=== PATIENT | male | born 1970 | race Two or more races ===

== ENCOUNTER → 2020-06-07 11:45 | Outpatient (BNVA) | payer MEDICARE, MEDICAID, SELFPAY | PROVIDERS: Visit Provider Internal Medicine | DX: F11.20 Opioid dependence, uncomplicated (principal) | CPT/HCPCS: 80305; 99212 ==

== ENCOUNTER → 2020-07-08 11:25 | Outpatient (BNVA) | payer MEDICARE, MEDICAID, SELFPAY | PROVIDERS: Visit Provider Internal Medicine | DX: F11.20 Opioid dependence, uncomplicated (principal) | CPT/HCPCS: 80305; 99211 ==

== ENCOUNTER → 2020-08-05 10:48 | Outpatient (BNVA) | payer MEDICARE, MEDICAID, SELFPAY | PROVIDERS: Visit Provider Internal Medicine | DX: Z13.89 Encounter for screening for other disorder (principal) | CPT/HCPCS: Q3014 ==

== ENCOUNTER → 2020-09-03 10:09 | Outpatient (BNVA) | payer MEDICARE, MEDICAID, SELFPAY | PROVIDERS: Visit Provider Internal Medicine | DX: F11.99 Opioid use, unspecified with unspecified opioid-induced disorder (principal) | CPT/HCPCS: Q3014 ==

== ENCOUNTER → 2020-10-01 10:04 | Outpatient (BNVA) | payer MEDICARE, MEDICAID, SELFPAY | PROVIDERS: PCP Physician Assistant Medical; Visit Provider Internal Medicine | DX: Z13.89 Encounter for screening for other disorder (principal) | CPT/HCPCS: Q3014 ==

== ENCOUNTER → 2020-10-29 10:02 | Outpatient (BNVA) | payer MEDICARE, MEDICAID, SELFPAY | PROVIDERS: PCP Physician Assistant Medical; Visit Provider Internal Medicine | DX: Z13.89 Encounter for screening for other disorder (principal) | CPT/HCPCS: Q3014 ==

== ENCOUNTER → 2020-11-29 10:44 | Outpatient (BNVA) | payer MEDICARE, MEDICAID, SELFPAY | PROVIDERS: PCP Physician Assistant Medical; Visit Provider Internal Medicine | DX: F11.20 Opioid dependence, uncomplicated (principal) | CPT/HCPCS: 80305; 99212 ==

== ENCOUNTER → 2020-12-27 10:41 | Outpatient (BNVA) | payer MEDICARE, MEDICAID, SELFPAY | PROVIDERS: PCP Physician Assistant Medical; Visit Provider Internal Medicine | DX: F11.20 Opioid dependence, uncomplicated (principal) | CPT/HCPCS: 80305; 99212 ==

== ENCOUNTER → 2021-01-24 10:15 | Outpatient (BNVA) | payer MEDICARE, MEDICAID, SELFPAY | PROVIDERS: PCP Physician Assistant Medical; Visit Provider Internal Medicine | DX: F11.20 Opioid dependence, uncomplicated (principal) | CPT/HCPCS: 80305; 99212 ==

== ENCOUNTER → 2021-02-21 10:26 | Outpatient (BNVA) | payer MEDICARE, MEDICAID, SELFPAY | PROVIDERS: PCP Physician Assistant Medical; Visit Provider Internal Medicine | DX: F11.20 Opioid dependence, uncomplicated (principal) | CPT/HCPCS: 80305; 99212 ==

== ENCOUNTER → 2021-03-14 10:59 | Outpatient (BNVA) | payer MEDICARE, MEDICAID, SELFPAY | PROVIDERS: Visit Provider Internal Medicine | DX: Z51.81 Encounter for therapeutic drug level monitoring (principal) | CPT/HCPCS: 80305; 99211 ==

== ENCOUNTER → 2021-04-18 10:17 | Outpatient (BNVA) | payer MEDICARE, MEDICAID, SELFPAY | PROVIDERS: Visit Provider Internal Medicine | DX: F11.20 Opioid dependence, uncomplicated (principal) | CPT/HCPCS: 80305; 99212 ==

== ENCOUNTER → 2021-06-13 10:33 | Outpatient (BNVA) | payer MEDICARE, MEDICAID, SELFPAY | PROVIDERS: Visit Provider Internal Medicine | DX: F11.20 Opioid dependence, uncomplicated (principal); Z51.81 Encounter for therapeutic drug level monitoring | CPT/HCPCS: 80305; 99212 ==

== ENCOUNTER → 2021-08-13 11:23 | Outpatient (BNVA) | payer MEDICARE, MEDICAID, SELFPAY | PROVIDERS: Visit Provider Internal Medicine | DX: F11.20 Opioid dependence, uncomplicated (principal); Z51.81 Encounter for therapeutic drug level monitoring; Z79.899 Other long term (current) drug therapy | CPT/HCPCS: 80305; 99212 ==

== ENCOUNTER → 2021-10-08 10:22 | Outpatient (BNVA) | payer MEDICARE, MEDICAID, SELFPAY | PROVIDERS: Visit Provider Internal Medicine | DX: Z51.81 Encounter for therapeutic drug level monitoring (principal); F11.20 Opioid dependence, uncomplicated | CPT/HCPCS: 99212 ==

== ENCOUNTER → 2021-12-03 10:27 | Outpatient (BNVA) | payer MEDICARE, MEDICAID, SELFPAY | PROVIDERS: Visit Provider Internal Medicine | DX: Z51.81 Encounter for therapeutic drug level monitoring (principal); F11.20 Opioid dependence, uncomplicated | CPT/HCPCS: 80305; 99212 ==

== ENCOUNTER → 2022-01-30 10:53 | Outpatient (BNVA) | payer MEDICARE, MEDICAID, SELFPAY | PROVIDERS: Visit Provider Internal Medicine | DX: Z51.81 Encounter for therapeutic drug level monitoring (principal); F11.20 Opioid dependence, uncomplicated | CPT/HCPCS: 80305; 99212 ==

== ENCOUNTER → 2022-03-27 10:47 | Outpatient (BNVA) | payer MEDICARE, MEDICAID, SELFPAY | PROVIDERS: PCP Internal Medicine Medical Oncology; Visit Provider Internal Medicine | DX: F11.20 Opioid dependence, uncomplicated (principal); Z51.81 Encounter for therapeutic drug level monitoring; Z79.899 Other long term (current) drug therapy | CPT/HCPCS: 99212 ==

== ENCOUNTER → 2022-06-02 11:22 | Outpatient (BNVA) | payer MEDICARE, MEDICAID, SELFPAY | PROVIDERS: PCP Internal Medicine Medical Oncology; Visit Provider Internal Medicine | DX: Z51.81 Encounter for therapeutic drug level monitoring (principal); F11.29 Opioid dependence with unspecified opioid-induced disorder | CPT/HCPCS: 99212 ==

== ENCOUNTER → 2022-08-03 13:42 | Outpatient (BNVA) | payer MEDICARE, MEDICAID, SELFPAY | PROVIDERS: PCP Internal Medicine Medical Oncology; Visit Provider Internal Medicine | DX: F11.20 Opioid dependence, uncomplicated (principal) | CPT/HCPCS: 99212 ==

== ENCOUNTER → 2022-09-28 13:25 | Outpatient (BNVA) | payer MEDICARE, MEDICAID, SELFPAY | PROVIDERS: PCP Internal Medicine Medical Oncology; Visit Provider Nurse Practitioner Psychiatric/Mental Health | DX: F11.20 Opioid dependence, uncomplicated (principal) | CPT/HCPCS: 80305; 99212 ==

== ENCOUNTER → 2022-11-23 11:08 | Outpatient (BNVA) | payer MEDICARE, MEDICAID, SELFPAY | PROVIDERS: PCP Internal Medicine Medical Oncology; Visit Provider Nurse Practitioner Psychiatric/Mental Health | DX: F11.91 Opioid use, unspecified, in remission (principal); Z51.81 Encounter for therapeutic drug level monitoring; Z79.899 Other long term (current) drug therapy | CPT/HCPCS: 80305; 99212 ==

== ENCOUNTER 2023-01-19 10:34 | Outpatient (REF) | payer MEDICARE, MEDICAID, SELFPAY ==
[2023-01-19 12:33] LABS: Alanine Aminotransferase 42 U/L (0-40); Albumin Level 4.4 g/dL (3.5-5.0); Alkaline Phosphatase 57 U/L (39-117); Aspartate Amino Transferase 30 U/L (5-37); Bilirubin Direct 0.1 mg/dL (0.0-0.5); Bilirubin Total 0.5 mg/dL (0.0-1.0); Total Protein 8.2 g/dL (6.5-8.0)
== END 2023-01-19 10:35 | disposition home or self-care (01) ==
LOC: CF 10:34
PROVIDERS: Nurse Practitioner Psychiatric/Mental Health; PCP Internal Medicine Medical Oncology; Visit Provider Nurse Practitioner Psychiatric/Mental Health
DX: F11.20 Opioid dependence, uncomplicated (principal); Z51.81 Encounter for therapeutic drug level monitoring; Z79.899 Other long term (current) drug therapy
CPT/HCPCS: 36415; 80076; 80305; 99212

== ENCOUNTER 2023-03-17 16:04 | Outpatient (AMB) | payer MEDICARE, MEDICAID, SELFPAY ==
[2023-03-17 16:22] VITALS: BP 136/85; PULSE 90; O2SAT 98
--- NOTE | 2023-03-17 16:22 | MHC.OFFVIS ---
Intake Vital Signs 03/17/23 16:22 BP 136/85 Blood Pressure Location Lt brachial Position Sitting Pulse 90 Pulse Oximetry (%) 98 Intake Visit Reasons: mat visit Allergies acetaminophen [Tylenol] Allergy (Unknown, Verified 01/19/23 10:37) hives HPI mat visit HPI Details Patient presents for follow up Currently prescribed SUboxone 8mg BID Would like to trial taper Discussed methods for doing so, including decreasing by 2mg every 3 weeks--and holding when/if withdrawal sx present. Reinforced importance of not decreasing dose too fast. Patient verbalized understanding [facility] Medical History Opioid use disorder Review of Systems Const Reports as per HPI and Reports no additional complaints Physical Exam Vital Signs: Last Vital Signs Pulse 90 03/17/23 16:22 BP 136/85 03/17/23 16:22 Pulse Ox 98 03/17/23 16:22 Const General: cooperative, healthy appearing, comfortable, no acute distress, well developed and alert Nutritional Appearance: well nourished Orientation/consciousness: patient oriented x3 Limitations: no limitations Neuro General: patient oriented x3 Psych Appearance: well kempt Mental Status: mental status grossly normal Speech and movement: Normal speech and movement present Affect: normal affect Attitude: cooperative Thought process: Normal thought process present Thought content: Normal thought content present Insight: Good insight present (Psych) Judgement: Good judgement present (Psych) Assessment & Plan Assessment & Plan (1) Opioid use disorder in remission: Code(s): F11.91 - Opioid use, unspecified, in remission Plan: continue suboxone at current dose --with plan to trial taper before next appt follow up 8 weeks Medications: Refilled Suboxone 8-2 mg (buprenorphine-naloxone) 2 film sublingual DAILY 30 days 60 ea 1RF NS Coding Level of Care Code Est Pt Level 3 (96765) Diagnoses Opioid use disorder in remission F11.91
== END 2023-03-17 16:44 | disposition home or self-care (01) ==
LOC: HO.HCC 16:04
PROVIDERS: PCP Internal Medicine Medical Oncology; Visit Provider Nurse Practitioner Psychiatric/Mental Health
DX: F11.91 Opioid use, unspecified, in remission (principal)
CPT/HCPCS: 99213

== ENCOUNTER → 2023-03-17 16:04 | Outpatient (BNVA) | payer MEDICARE, MEDICAID, SELFPAY | PROVIDERS: PCP Internal Medicine Medical Oncology; Visit Provider Nurse Practitioner Psychiatric/Mental Health | DX: Z51.81 Encounter for therapeutic drug level monitoring (principal); F11.20 Opioid dependence, uncomplicated | CPT/HCPCS: 99212 ==

== ENCOUNTER 2023-05-10 11:01 | Outpatient (AMB) | payer MEDICARE, MEDICAID, SELFPAY ==
--- NOTE | 2023-05-10 11:01 | A.OFFVIS_ITS ---
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 Following last visit patient began to taper his dose. Initially decreased by quarter of an 8 mg film (2 mg). State at this dose for several weeks then decreased in additional two mg. He is currently at 8 mg in the morning and 4 mg in the late afternoon. Continues to have some feelings of anxiety and occasionally feeling like he needs another dose of Suboxone. Discussed strategies to address this anxiety including holding at current dose for several weeks to a month before decreasing any further. [facility] Medical History Opioid use disorder Review of Systems Const Reports as per HPI and Reports no additional complaints Physical Exam Vital Signs: Last Vital Signs Pulse 80 05/10/23 11:12 BP 128/84 05/10/23 11:12 Pulse Ox 98 05/10/23 11:12 Oxygen Delivery Method Room Air 05/10/23 11:12 Const General: cooperative, healthy appearing, comfortable, no acute distress, well developed and alert Nutritional Appearance: well nourished Orientation/consciousness: patient oriented x3 Limitations: no limitations Neuro General: patient oriented x3 Psych Appearance: well kempt Mental Status: mental status grossly normal Speech and movement: Normal speech and movement present Affect: normal affect Attitude: cooperative Thought process: Normal thought process present Thought content: Normal thought content present Insight: Good insight present (Psych) Judgement: Good judgement present (Psych) Assessment & Plan Assessment & Plan (1) Opioid use disorder in remission: Code(s): F11.91 - Opioid use, unspecified, in remission Plan: * continue suboxone at current dose 12 mg--with plan to trial taper before next appt * follow up 8 weeks * Hydroxyzine TID prn Medications: New buprenorphine-naloxone 8-2 mg (Suboxone) 1 film buccal DAILY 30 ea 1RF buprenorphine-naloxone 4-1 mg (Suboxone) 1 film buccal DAILY 30 ea 1RF Changed From hydroxyzine pamoate (Vistaril) 25 mg PO BEDTIME 30 days 30 caps 5RF To hydroxyzine pamoate (Vistaril) 25 mg PO TID PRN 30 caps 0RF anxiety Discontinued Suboxone 8-2 mg (buprenorphine-naloxone) Discontinued Reason: Doctor's Order 2 film sublingual DAILY 30 days 60 ea 1RF NS Coding Level of Care Code Est Pt Level 4 (90969) Diagnoses Opioid use disorder in remission F11.91
[2023-05-10 11:12] VITALS: BP 128/84; PULSE 80; O2SAT 98
== END 2023-05-10 11:31 | disposition home or self-care (01) ==
LOC: HO.HCC 11:01
PROVIDERS: PCP Internal Medicine Medical Oncology; Visit Provider Nurse Practitioner Psychiatric/Mental Health
DX: F11.91 Opioid use, unspecified, in remission (principal)
CPT/HCPCS: 99214

== ENCOUNTER → 2023-05-10 11:01 | Outpatient (BNVA) | payer MEDICARE, MEDICAID, SELFPAY | PROVIDERS: PCP Internal Medicine Medical Oncology; Visit Provider Nurse Practitioner Psychiatric/Mental Health | DX: F11.91 Opioid use, unspecified, in remission (principal) | CPT/HCPCS: 99212 ==

== ENCOUNTER 2023-07-05 12:58 | Outpatient (AMB) | payer MEDICARE, MEDICAID, SELFPAY ==
--- NOTE | 2023-07-05 12:59 | A.OFFVIS_ITS ---
Intake Vital Signs 07/05/23 13:05 BP 128/76 Blood Pressure Location Lt radial Position Sitting Pulse 93 Pulse Source Pulse Oximeter Pulse Oximetry (%) 98 Oxygen Delivery Method Room Air Intake Visit Reasons: mat visit Intake Note: the patient presents for a mat visit Director Clinical Applications Required: No Allergies acetaminophen [Tylenol] Allergy (Unknown, Verified 07/05/23 13:05) hives Medication List - Last Reconciled 07/05/23 by Libby Herrera CNP lorazepam 1 mg PO BEDTIME PRN 5 days Suboxone 4-1 mg (buprenorphine-naloxone) 1 film buccal DAILY NS Suboxone 8-2 mg (buprenorphine-naloxone) 1 film buccal DAILY NS Do you need a note to return to daycare/school/sports/work: No HPI mat visit HPI Details Patient presents for OUD treatment follow up Taking 8mg in AM and 1/2 of a 4mg film=10mg total Reporting occasional hot flashes at night, denies sweating Encouraged to stay at current dose for another few weeks to ensure sx do not worsen. Patient agreeable [facility] Medical History Opioid use disorder Review of Systems Const Reports as per HPI and Reports no additional complaints Physical Exam Vital Signs: Last Vital Signs Pulse 93 07/05/23 13:05 BP 128/76 07/05/23 13:05 Pulse Ox 98 07/05/23 13:05 Oxygen Delivery Method Room Air 07/05/23 13:05 Const General: cooperative, healthy appearing, comfortable, no acute distress, well developed and alert Nutritional Appearance: well nourished Orientation/consciousness: patient oriented x3 Limitations: no limitations Neuro General: patient oriented x3 Psych Appearance: well kempt Mental Status: mental status grossly normal Speech and movement: Normal speech and movement present Affect: normal affect Attitude: cooperative Thought process: Normal thought process present Thought content: Normal thought content present Insight: Good insight present (Psych) Judgement: Good judgement present (Psych) Assessment & Plan Assessment & Plan (1) Opioid use disorder in remission: Code(s): F1. - Opioid use, unspecified, in remission Plan: * continue at current dose * refill not due for another month * follow up in August Coding Level of Care Code Est Pt Level 3 (75543) Diagnoses Opioid use disorder in remission
[2023-07-05 13:05] VITALS: BP 128/76; PULSE 93; O2SAT 98
== END 2023-07-05 13:39 | disposition home or self-care (01) ==
PROVIDERS: PCP Internal Medicine Medical Oncology; Visit Provider Nurse Practitioner Family
DX: F11.91 Opioid use, unspecified, in remission (principal)
CPT/HCPCS: 99213

== ENCOUNTER → 2023-07-05 12:58 | Outpatient (BNVA) | payer MEDICARE, MEDICAID, SELFPAY | PROVIDERS: PCP Internal Medicine Medical Oncology; Visit Provider Nurse Practitioner Family | DX: F11.91 Opioid use, unspecified, in remission (principal) | CPT/HCPCS: 99212 ==

== ENCOUNTER 2023-09-06 11:00 | Outpatient (AMB) | payer MEDICARE, MEDICAID, SELFPAY ==
--- NOTE | 2023-09-06 11:34 | MHC.AM.SUB ---
Intake Intake Visit Reasons: MAT VISIT Allergies acetaminophen [Tylenol] Allergy (Unknown, Verified 07/05/23 13:05) hives HPI MAT VISIT HPI Details Pt presents via telehealth for LIUDMILA Reports he has been doing well, says his hot flashes he was experiencing in the night have subsided. He has been taking 8mg suboone in the morning and 2mg in the evening, he wishes to start tapering down at this time. He feels as though he was unsuccessful with his last attempt at tapering because it was too much too soon Discussed with patient decreasing his evening dose by 1/2-1mg PFSH Medical History Opioid use disorder Review of Systems Const Reports as per HPI Assessment & Plan Assessment & Plan (1) Opioid use disorder in remission: Code(s): F11.91 - Opioid use, unspecified, in remission Plan: -Refill sent for 8mg films and 2mg films. Pt is to begin decreasing his evening dose from 2mg to 1-1.5mg adjusted based on withdrawal symptoms -He is to follow up via telehealth in 1 month to check in on how the medication decrease is going -Taper planning will be ongoing Medications: New Suboxone 2-0.5 mg (buprenorphine-naloxone) place 1 strip/tab under (each) side of tongue 1 film buccal DAILY 30 ea 0RF NS Refilled Suboxone 8-2 mg (buprenorphine-naloxone) 1 film buccal DAILY 30 ea 0RF NS Discontinued Suboxone 4-1 mg (buprenorphine-naloxone) Discontinued Reason: Patient Completed Course 1 film buccal DAILY 30 ea 0RF NS Telehealth Telehealth Location of provider rendering services: practice address Location of patient: address on file Patient Identification confirmed using: Name, : Yes Telehealth method: voice only Patient verbally consented to treatment: Yes Patient verbally consented to billing insurance company: Yes Patient informed of any privacy concerns related to visit: Yes Coding Level of Care Code Tele Est Pt Level 3 (54205) Diagnoses Opioid use disorder in remission F11.91
== END 2023-09-06 11:25 | disposition home or self-care (01) ==
PROVIDERS: PCP Internal Medicine Medical Oncology; Visit Provider Nurse Practitioner Family
DX: F11.91 Opioid use, unspecified, in remission (principal)
CPT/HCPCS: 99442

== ENCOUNTER → 2023-09-06 11:00 | Outpatient (BNVA) | payer MEDICARE, MEDICAID, SELFPAY | PROVIDERS: PCP Internal Medicine Medical Oncology; Visit Provider Nurse Practitioner Family ==

== ENCOUNTER 2023-10-04 10:39 | Outpatient (AMB) | payer MEDICARE, MEDICAID, SELFPAY ==
--- NOTE | 2023-10-04 13:14 | MHC.AM.SUB ---
Intake Intake Visit Reasons: MAT VISIT Allergies acetaminophen [Tylenol] Allergy (Unknown, Verified 07/05/23 13:05) hives HPI MAT VISIT HPI Details Patient presents via telehelath for MAt visit He reports the last month has gone well for him He is tolerating his suboxone dose well (10mg day) No concern for side effects No concerns for recovery at this time [facility] Medical History Opioid use disorder Review of Systems Const Reports as per HPI Assessment & Plan Assessment & Plan (1) Opioid use disorder: Comment: He is doing well He has been stable for some time. Code(s): F11.99 - Opioid use, unspecified with unspecified opioid-induced disorder Plan: -Mass pat reviewed -Suboxone refilled at current dose -Educated him to call office if he has any concerns -Follow up 2 months Medications: Refilled Suboxone 2-0.5 mg (buprenorphine-naloxone) place 1 strip/tab under (each) side of tongue 1 film buccal DAILY 30 ea 0RF NS Suboxone 8-2 mg (buprenorphine-naloxone) 1 film buccal DAILY 30 ea 0RF NS Telehealth Telehealth Location of provider rendering services: practice address Location of patient: address on file Patient Identification confirmed using: Name, : Yes Telehealth method: voice only Patient verbally consented to treatment: Yes Patient verbally consented to billing insurance company: Yes Patient informed of any privacy concerns related to visit: Yes Minutes spent on Phone/Video with Pt.: 20 Coding Level of Care Code Tele Est Pt Level 3 (28762) Diagnoses Opioid use disorder F11.99
== END 2023-10-04 10:58 | disposition home or self-care (01) ==
PROVIDERS: PCP Internal Medicine Medical Oncology; Visit Provider Nurse Practitioner Family
DX: F11.20 Opioid dependence, uncomplicated (principal)
CPT/HCPCS: 99442

== ENCOUNTER → 2023-10-04 10:39 | Outpatient (BNVA) | payer MEDICARE, MEDICAID, SELFPAY | PROVIDERS: PCP Internal Medicine Medical Oncology; Visit Provider Nurse Practitioner Family ==

== ENCOUNTER 2023-11-29 10:25 | Outpatient (AMB) | payer MEDICARE, MEDICAID, SELFPAY ==
--- NOTE | 2023-11-29 10:31 | A.OFFVISCC_ITS ---
Intake Vital Signs 11/29/23 10:35 BP 120/70 Blood Pressure Location Rt brachial Position Sitting Respiration 20 Pulse 98 Pulse Source Pulse Oximeter Pulse Oximetry (%) 99 Intake Visit Reasons: MAT VISIT Allergies acetaminophen [Tylenol] Allergy (Unknown, Verified 07/05/23 13:05) hives HPI MAT VISIT HPI Details Patient presents for MAT appointment Has no concerns for recovery at this time Denies cravings Tolerating suboxone dose well, has tapered form 10mg/day to 9mg/day HPI Comments History of Present Illness Details Patient presents for MAT visit [facility] Medical History Opioid use disorder Review of Systems Const Reports as per HPI Physical Exam Vital Signs: Last Vital Signs Pulse 98 11/29/23 10:35 Resp 20 11/29/23 10:35 BP 120/70 11/29/23 10:35 Pulse Ox 99 11/29/23 10:35 Const General: cooperative and no acute distress Resp Effort & Inspection: normal respiratory effort and able to speak in complete sentences Psych Appearance: grossly normal Mental Status: mental status grossly normal Speech and movement: Normal speech and movement present Affect: normal affect Attitude: cooperative Thought process: Normal thought process present Assessment & Plan Assessment & Plan (1) Opioid use disorder: Comment: He is doing well He has been stable for some time. Code(s): F11.99 - Opioid use, unspecified with unspecified opioid-induced disorder Plan: -Mass pat reviewed -Suboxone refilled -Follow up 8 weeks Medications: Refilled Suboxone 8-2 mg (buprenorphine-naloxone) 1 film buccal DAILY 30 ea 0RF NS Suboxone 2-0.5 mg (buprenorphine-naloxone) place 1 strip/tab under (each) side of tongue 1 film buccal DAILY 30 ea 0RF NS Coding Level of Care Code Est Pt Level 3 (06301) Diagnoses Opioid use disorder F11.99
[2023-11-29 10:35] VITALS: BP 120/70; PULSE 98; RESP 20; O2SAT 99
== END 2023-11-29 11:20 | disposition home or self-care (01) ==
PROVIDERS: PCP Internal Medicine Medical Oncology; Visit Provider Nurse Practitioner Family
DX: F11.99 Opioid use, unspecified with unspecified opioid-induced disorder (principal)
CPT/HCPCS: 99213

== ENCOUNTER → 2023-11-29 10:25 | Outpatient (BNVA) | payer MEDICARE, MEDICAID, SELFPAY | PROVIDERS: PCP Internal Medicine Medical Oncology; Visit Provider Nurse Practitioner Family | DX: F11.20 Opioid dependence, uncomplicated (principal) | CPT/HCPCS: 99212 ==

== ENCOUNTER 2024-01-04 10:52 | Outpatient (AMB) | payer MEDICARE, MEDICAID, SELFPAY ==
--- NOTE | 2024-01-04 10:51 | A.OFFVISCC_ITS ---
Vital Signs 01/04/24 10:55 BP 132/78 Blood Pressure Location Lt brachial Position Sitting Pulse 90 Pulse Source Pulse Oximeter Pulse Oximetry (%) 99 Oxygen Delivery Method Room Air Intake Visit Reasons: MAT Allergies acetaminophen [Tylenol] Allergy (Unknown, Verified 07/05/23 13:05) hives HPI HPI MAT: Details: Patient presents for follow up Has been tapering dose --may have gone too quickly was at 8mg + 1mg, but then reduced by another half mg. Wants to go back to 10mg daily 8mg +2mg is what he wants to return to. does not need a refill right for the 2mg films 8mg rx sent in yesterday will call when refill for 2mg is due Encouraged to pause on taper for now given challenges with most recent dose reduction patient agreeable [facility] Medical History (Updated 01/04/24 @ 15:15 by Libby Herrera CNP) Opioid use disorder Review of Systems Const Reports as per HPI Physical Exam Vital Signs: Last Vital Signs Pulse 90 01/04/24 10:55 BP 132/78 01/04/24 10:55 Pulse Ox 99 01/04/24 10:55 Oxygen Delivery Method Room Air 01/04/24 10:55 Const General: cooperative and comfortable Nutritional Appearance: average body habitus Orientation/consciousness: patient oriented x3 Limitations: no limitations Neuro General: patient oriented x3 Psych Appearance: well kempt Speech and movement: Clear speech present Affect: Anxious affect present Attitude: cooperative Thought process: Normal thought process present Thought content: Normal thought content present Insight: Fair insight present (Psych) Judgement: Good judgement present (Psych) Assessment & Plan Assessment & Plan (1) Opioid use disorder in remission: Code(s): F11.91 - Opioid use, unspecified, in remission Category: Medical Plan: * no rx needed at this time--will call when he needs 2mg films refilled * 4mg script cancelled * follow up 4 weeks Medications: Discontinued Suboxone 4-1 mg (buprenorphine-naloxone) place 1 strip/tab under (each) side of tongue Discontinued Reason: Doctor's Order 1 film buccal DAILY 16 ea 0RF NS
[2024-01-04 10:55] VITALS: BP 132/78; PULSE 90; O2SAT 99
== END 2024-01-04 11:47 | disposition home or self-care (01) ==
PROVIDERS: PCP Internal Medicine Medical Oncology; Visit Provider Nurse Practitioner Psychiatric/Mental Health
DX: F11.91 Opioid use, unspecified, in remission (principal)
CPT/HCPCS: 99213

== ENCOUNTER → 2024-01-04 10:52 | Outpatient (BNVA) | payer MEDICARE, MEDICAID, SELFPAY | PROVIDERS: PCP Internal Medicine Medical Oncology; Visit Provider Nurse Practitioner Psychiatric/Mental Health | DX: F11.20 Opioid dependence, uncomplicated (principal) | CPT/HCPCS: 99212 ==

== ENCOUNTER 2024-02-01 10:17 | Outpatient (AMB) | payer MEDICARE, MEDICAID, SELFPAY ==
--- NOTE | 2024-02-01 10:27 | MHC.AM.SUB ---
Vital Signs 02/01/24 10:34 BP 140/94 H Blood Pressure Location Rt brachial Position Sitting Respiration 16 Pulse 87 Pulse Source Pulse Oximeter Pulse Oximetry (%) 98 Oxygen Delivery Method Room Air Intake Visit Reasons: MAT Allergies acetaminophen [Tylenol] Allergy (Unknown, Verified 07/05/23 13:05) hives HPI HPI MAT: Details: Patient presents for MAT appt States he has been taking 8mg and 1/2 of his 4mg films for a daily total dose of 10mg COntinues to experience intermittent panic attacks, has a therapist and psychiatrist monitoring Has been facing some challenges parenting his 7yo daughter, 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 Has no concerns for recovery today HPI Comments Details: Patient presents for MAT visit [facility] Medical History (Updated 01/04/24 @ 15:15 by Libby Herrera CNP) Opioid use disorder Review of Systems Const Reports as per HPI Physical Exam Vital Signs: Last Vital Signs Pulse 87 02/01/24 10:34 Resp 16 02/01/24 10:34 BP 140/94 H 02/01/24 10:34 Pulse Ox 98 02/01/24 10:34 Oxygen Delivery Method Room Air 02/01/24 10:34 Const General: cooperative and no acute distress Resp Effort & Inspection: normal respiratory effort and able to speak in complete sentences Psych Appearance: grossly normal Mental Status: mental status grossly normal Speech and movement: Normal speech and movement present Affect: normal affect Attitude: cooperative Thought process: Normal thought process present Assessment & Plan Assessment & Plan (1) Opioid use disorder in remission: Code(s): F11.91 - Opioid use, unspecified, in remission Category: Medical Plan: -Mass pat reviewed -8mg suboxone films refill sent to pharmacy -4mg films were last filled on 01/10, he has been splitting in half, no refill due for these until 03/12 -Follow up 2 months Medications: Refilled Suboxone 8-2 mg (buprenorphine-naloxone) 1 film buccal DAILY 30 ea 1RF NS
[2024-02-01 10:34] VITALS: BP 140/94; PULSE 87; RESP 16; O2SAT 98
== END 2024-02-01 10:57 | disposition home or self-care (01) ==
PROVIDERS: PCP Internal Medicine Medical Oncology; Visit Provider Nurse Practitioner Family
DX: F11.91 Opioid use, unspecified, in remission (principal)
CPT/HCPCS: 99213

== ENCOUNTER → 2024-02-01 10:17 | Outpatient (BNVA) | payer MEDICARE, MEDICAID, SELFPAY | PROVIDERS: PCP Internal Medicine Medical Oncology; Visit Provider Nurse Practitioner Family | DX: F11.21 Opioid dependence, in remission (principal) | CPT/HCPCS: 99212 ==

== ENCOUNTER 2024-03-27 14:02 | Outpatient (AMB) | payer MEDICARE, MEDICAID, SELFPAY ==
--- NOTE | 2024-03-27 14:03 | MHC.AM.SUB ---
Vital Signs 03/27/24 14:07 BP 140/80 H Blood Pressure Location Lt brachial Position Sitting Pulse Source Pulse Oximeter Pulse Oximetry (%) 98 Intake Visit Reasons: MAT Allergies acetaminophen [Tylenol] Allergy (Unknown, Verified 07/05/23 13:05) hives HPI HPI MAT: Details: Patient presents for follow up Currently prescribed Suboxone 12mg daily will continue this dose tolerating brand name buprenorphine generic films cause GI distress wants to taper dose again --encouraged to go slowly as he has been attempting to decrease dose for some time and unfortumately results in issues with prescriptions discussed injection again, patient declines this option [facility] Medical History (Updated 01/04/24 @ 15:15 by Libby Herrera CNP) Opioid use disorder Review of Systems Const Reports as per HPI and Reports no additional complaints Physical Exam Vital Signs: Last Vital Signs BP 140/80 H 03/27/24 14:07 Pulse Ox 98 03/27/24 14:07 Const General: cooperative and no acute distress Psych Appearance: grossly normal Mental Status: mental status grossly normal Speech and movement: Normal speech and movement present Affect: normal affect Attitude: cooperative Thought process: Normal thought process present Assessment & Plan Assessment & Plan (1) Opioid use disorder in remission: Code(s): F11.91 - Opioid use, unspecified, in remission Category: Medical Plan: -continue suboxone at current dose -follow up 8 weeks
[2024-03-27 14:07] VITALS: BP 140/80; O2SAT 98
== END 2024-03-27 14:30 | disposition home or self-care (01) ==
PROVIDERS: PCP Internal Medicine Medical Oncology; Visit Provider Nurse Practitioner Psychiatric/Mental Health
DX: F11.91 Opioid use, unspecified, in remission (principal)
CPT/HCPCS: 99213

== ENCOUNTER → 2024-03-27 14:02 | Outpatient (BNVA) | payer MEDICARE, MEDICAID, SELFPAY | PROVIDERS: PCP Internal Medicine Medical Oncology; Visit Provider Nurse Practitioner Psychiatric/Mental Health | DX: F11.20 Opioid dependence, uncomplicated (principal); Z51.81 Encounter for therapeutic drug level monitoring | CPT/HCPCS: 99212 ==

== ENCOUNTER 2024-04-21 10:30 | Outpatient (AMB) | payer MEDICARE, MEDICAID, SELFPAY ==
--- NOTE | 2024-04-21 10:39 | MHC.AM.SUB ---
Intake Visit Reasons: MAT Office Allergies acetaminophen [Tylenol] Allergy (Unknown, Verified 07/05/23 13:05) hives HPI HPI MAT Office: Details: Patient presents for follow up Reports he has decreased to 10mg for the past 2 days Insistent that he have dose decrease as he does not wish to have 12mg films any longer Discussed risk and concern with decreasing dose based on history of decreasing too quickly Patient acknowledged this and feels strongly that he can move forward [facility] Medical History (Updated 01/04/24 @ 15:15 by Libby Herrera CNP) Opioid use disorder Review of Systems Const Reports as per HPI and Reports no additional complaints Physical Exam Const General: cooperative and no acute distress Psych Appearance: grossly normal Mental Status: mental status grossly normal Speech and movement: Normal speech and movement present Affect: normal affect Attitude: cooperative Thought process: Normal thought process present Assessment & Plan Assessment & Plan (1) Opioid use disorder in remission: Code(s): F11.91 - Opioid use, unspecified, in remission Category: Medical Plan: -decrease dose to 10mg daily -follow up 4 weeks Medications: New Suboxone 2-0.5 mg (buprenorphine-naloxone) 1 film buccal DAILY 30 ea 0RF NS Suboxone 8-2 mg (buprenorphine-naloxone) 1 film buccal DAILY 30 ea 0RF NS Discontinued Suboxone 12-3 mg (buprenorphine-naloxone) Discontinued Reason: Doctor's Order 1 film buccal Q24H 30 ea 0RF NS
== END 2024-04-21 10:57 | disposition home or self-care (01) ==
PROVIDERS: PCP Internal Medicine Medical Oncology; Visit Provider Nurse Practitioner Psychiatric/Mental Health
DX: F11.91 Opioid use, unspecified, in remission (principal)
CPT/HCPCS: 99214

== ENCOUNTER → 2024-04-21 10:30 | Outpatient (BNVA) | payer MEDICARE, MEDICAID, SELFPAY | PROVIDERS: PCP Internal Medicine Medical Oncology; Visit Provider Nurse Practitioner Psychiatric/Mental Health | DX: F11.91 Opioid use, unspecified, in remission (principal); Z79.899 Other long term (current) drug therapy | CPT/HCPCS: 99212 ==

== ENCOUNTER 2024-05-19 08:52 | Outpatient (AMB) | payer MEDICARE, MEDICAID, SELFPAY ==
--- NOTE | 2024-05-19 08:53 | MHC.AM.SUB ---
Intake Visit Reasons: MAT Tele Allergies acetaminophen [Tylenol] Allergy (Unknown, Verified 07/05/23 13:05) hives HPI HPI MAT Tele: Details: Patient presents for follow up via telehealth current dose 10mg daily tolerating this dose no concerns at this time [facility] Medical History (Updated 01/04/24 @ 15:15 by Libby Herrera CNP) Opioid use disorder Review of Systems Const Reports as per HPI and Reports no additional complaints Telehealth Telehealth Telehealth Platform: Telephone Location of provider rendering services: practice address Location of patient: address on file Patient Identification confirmed using: Name, : Yes Telehealth method: voice only Patient verbally consented to treatment: Yes Patient verbally consented to billing insurance company: Yes Minutes spent on Phone/Video with Pt.: 15 Assessment & Plan Assessment & Plan (1) Opioid use disorder in remission: Code(s): F11.91 - Opioid use, unspecified, in remission Category: Medical Plan: no change to dose follow up 8 weeks Medications: Refilled Suboxone 2-0.5 mg (buprenorphine-naloxone) 1 film buccal DAILY 30 ea 1RF NS Suboxone 8-2 mg (buprenorphine-naloxone) 1 film buccal DAILY 30 ea 1RF NS
== END 2024-05-19 09:10 | disposition home or self-care (01) ==
PROVIDERS: PCP Internal Medicine Medical Oncology; Visit Provider Nurse Practitioner Psychiatric/Mental Health
DX: F11.91 Opioid use, unspecified, in remission (principal)
CPT/HCPCS: 99442

== ENCOUNTER → 2024-05-19 08:52 | Outpatient (BNVA) | payer MEDICARE, MEDICAID, SELFPAY | PROVIDERS: PCP Internal Medicine Medical Oncology; Visit Provider Nurse Practitioner Psychiatric/Mental Health | DX: F11.91 Opioid use, unspecified, in remission (principal) ==

== ENCOUNTER 2024-07-14 08:43 | Outpatient (AMB) | payer MEDICARE, MEDICAID, SELFPAY ==
--- NOTE | 2024-07-14 08:44 | MHC.AM.SUB ---
Intake Visit Reasons: MAT Tele Allergies acetaminophen [Tylenol] Allergy (Unknown, Verified 07/05/23 13:05) hives HPI HPI MAT Tele: Details: Patient presents for follow up via telehealth will reduce 2mg by 1/4 film for 4 weeks then another 1/4 in 4 weeks denies any side effects, constipation, etc doing well overall Review of Systems Const Reports as per HPI Telehealth Telehealth Telehealth Platform: Telephone Location of provider rendering services: practice address Location of patient: address on file Patient Identification confirmed using: Name, : Yes Telehealth method: voice only Patient verbally consented to treatment: Yes Patient verbally consented to billing insurance company: Yes Minutes spent on Phone/Video with Pt.: 15 Assessment & Plan Assessment & Plan (1) Opioid use disorder in remission: Code(s): F11.91 - Opioid use, unspecified, in remission Category: Medical Plan: continue suboxone at current dose --patient sulma decrease as noted above follow up 8 weeks Medications: Refilled Suboxone 8-2 mg (buprenorphine-naloxone) 1 film buccal DAILY 30 ea 1RF NS Suboxone 2-0.5 mg (buprenorphine-naloxone) 1 film buccal DAILY 30 ea 1RF NS [facility] Medical History (Updated 01/04/24 @ 15:15 by Libby Herrera CNP) Opioid use disorder
== END 2024-07-14 09:34 | disposition home or self-care (01) ==
PROVIDERS: PCP Internal Medicine Medical Oncology; Visit Provider Nurse Practitioner Psychiatric/Mental Health
DX: F11.91 Opioid use, unspecified, in remission (principal)
CPT/HCPCS: 98967

== ENCOUNTER 2024-09-08 08:50 | Outpatient (AMB) | payer MEDICARE, MEDICAID, SELFPAY ==
--- NOTE | 2024-09-08 08:52 | MHC.AM.SUB ---
Intake Visit Reasons: MAT Tele Allergies acetaminophen [Tylenol] Allergy (Unknown, Verified 07/05/23 13:05) hives HPI HPI MAT Tele: Details: Patient presents for follow up via telehealth Reports he was able to taper dose by 1mg since last visit Taking 8mg film and 1/2 of 2mg film Reporting no withdrawal sx since last reduction about 2 weeks ago In 2 weeks if he is feeling okay still he will reduce by another 1/4 film Review of Systems Const Reports as per HPI and Reports no additional complaints Telehealth Telehealth Telehealth Platform: Telephone Location of provider rendering services: practice address Location of patient: address on file Patient Identification confirmed using: Name, : Yes Telehealth method: voice only Patient verbally consented to treatment: Yes Patient verbally consented to billing insurance company: Yes Minutes spent on Phone/Video with Pt.: 15 [facility] Medical History (Updated 01/04/24 @ 15:15 by Libby Herrera CNP) Opioid use disorder Assessment & Plan Assessment & Plan (1) Opioid use disorder in remission: Code(s): F11.91 - Opioid use, unspecified, in remission Category: Medical Plan: continue to taper as noted above follow up 2 months
== END 2024-09-08 10:09 | disposition home or self-care (01) ==
PROVIDERS: PCP Internal Medicine Medical Oncology; Visit Provider Nurse Practitioner Psychiatric/Mental Health
DX: F11.91 Opioid use, unspecified, in remission (principal)
CPT/HCPCS: 98016

== ENCOUNTER → 2024-09-08 08:50 | Outpatient (BNVA) | payer MEDICARE, MEDICAID, SELFPAY | PROVIDERS: PCP Internal Medicine Medical Oncology; Visit Provider Nurse Practitioner Psychiatric/Mental Health | DX: F11.91 Opioid use, unspecified, in remission (principal) ==

== ENCOUNTER 2024-11-03 09:20 | Outpatient (AMB) | payer MEDICARE, MEDICAID, SELFPAY ==
--- NOTE | 2024-11-03 09:07 | A.OFFVISCC_ITS ---
Intake Visit Reasons: MAT Tele Allergies acetaminophen [Tylenol] Allergy (Unknown, Verified 07/05/23 13:05) hives HPI HPI MAT Tele: Details: Patient presents for follow up via telehealth Continues to taper dose taking a full 8mg film and 1/4 of 2mg film 8mg in AM and 1/4 of 2mg film after dinner Reports occasional constipation that is relieved with grape juice Denies any withdrawal sx -sleep not impacted Review of Systems Const Reports as per HPI and Reports no additional complaints Telehealth Telehealth Telehealth Platform: Telephone Location of provider rendering services: practice address Location of patient: address on file Patient Identification confirmed using: Name, : Yes Telehealth method: voice only Patient verbally consented to treatment: Yes Patient verbally consented to billing insurance company: Yes Minutes spent on Phone/Video with Pt.: 15 [facility] Medical History (Updated 01/04/24 @ 15:15 by Libby Herrera CNP) Opioid use disorder Assessment & Plan Assessment & Plan (1) Opioid use disorder in remission: Code(s): F11.91 - Opioid use, unspecified, in remission Category: Medical Plan: * will continue at current dose for another month or so before decreasing dose again * follow up 3 months
--- OUTSIDE RECORDS SUMMARY | 2024-11-03 10:10 | XMS_ITS ---
Author Organization Ricardo Seo III, MD Address [address] [place] [address] Care Team Providers Care Freight Receiver Name Role Phone Ricardo Seo Primary Care Provider [phone] REASON FOR VISIT annual exam Social History Sex Assigned At : Social History Observation Description Sex Assigned At Male Encounters Encounter Location Date Provider Diagnosis Ricardo Seo III, MD [address] [place] [address] [address] [place] [address] 06/14/2024 Ricardo Seo Plan Of Treatment Next Appt Details Provider Name:Ricardo Seo, 11/17/2024 11:00:00 AM, [address] [place] [address] [address], [place], [address], Progress Notes * GRAYSON GALLARDODOB:1970 (54 yo M)Acc No.[id number]:06/14/2024 Progress Notes Patient:?GRAYSON GALLARDO Provider:?Ricardo Seo MD :1970???Age:54 Y???Sex:Male Danny e:06/14/2024 Address:[address] [facility], [address] , [place], [phone] Subjective: * Chief Complaints: * ???1. Annual exam. * Medical History:? Objective: * Vitals:? Assessment: Plan: * Treatment: * Images: * The named appointment provid er may or may not be the originator of this progress note, and it is not deemed complete until electronically signed by the appointment provider. Sign off status: Pending * Provider:?Ricardo Seo MD Date:?05/24 Generated for Janes vizcaino/Aleida/Susanaitting on:?11/03/2024 10:10 AM EDT
--- OUTSIDE RECORDS SUMMARY | 2024-11-03 10:10 | XMS_ITS ---
Author Organization Ricardo Seo III, MD Address [address] [place] [address] [address] [facility] [facility] [place] [address] Care Team Providers Care Pipe Racker Name Role Phone Ricardo Seo Primary Care Provider REASON FOR VISIT Rx Refill Medications Medication [...] Date Provider Diagnosis Ricardo Seo III, MD [address] [place] [address] [address] [facility] [place] [address] 06/13/2024 Ricardo eSo Plan Of Treatment Medication Medication Name Sig Start Date Stop Date Notes Ibuprofen 800 MG 1 tablet with food o r milk as needed Orally every 8 hrs for 30 days 06/13/2024 08/11/2024 Next Appt Details Provider Name:Ricardo Seo, 11/17/2024 11:00:00 AM, [address] [place] [address] [place], [address], Progress Notes * GRAYSON GALLARDODOB:1970 (54 yo M)Acc No.[id number]:06/13/2024 Patient:?GRAYSON GALLARDO :1970???Age:54 Y???Sex:Male Address:[address] [address] , [place], [address] * Refills? Start Ibuprofen Tablet, 800 MG, Orally, 90 Tablet, 1 tablet with food or milk as needed, every 8 hrs, 30 days, Refills=1 * true * Date:? Generated for Janes vizcaino/Aleida/Saundra on:?11/03/2024 10:10 AM EDT
--- OUTSIDE RECORDS SUMMARY | 2024-11-03 10:11 | XMS_ITS ---
Author Organization Ricardo Seo III, MD Address [address] [facility] [address] Care Team Providers Care Business Leader Name Role Phone Ricardo Seo Primary Care Provider [phone] Allergies Allergen (clinical drug ingredient) Drug/Non Drug Allergy documented on EMR Reaction Allergy Type Onset Date Status acetaminophen Tylenol hives Drug Allergy Act mary Results Component Value Reference Range Notes URINE DIP STICK (Not yet rev iewed by provider) Interpretation: Performing Lab: Notes/Report: SG 1.010 1.005 - 1.025 pH 9.0 5.0 - 9.0 MINISTERIO Negative Negative - NIT Negative Negative - PRO 15 Negative - Trace GLU Negative Negative - KET Negative Negative - UBG 0.2 0.1 - 1.8 JAUN Negative 0.2 - 1.3 BLD 5-10 Negative - REASON FOR VISIT Annual Exam Medications Medication SIG (Take, Route, Fr equency, Duration) Notes Start Date End Date Status metroNIDAZOLE 1 % 1 application Utility Locator ally Once a day for 30 days 06/10/2023 01/06/2024 Active metroNIDAZOLE 0.75 % 1 application Exter nabeel Once a day for 30 days 06/10/2023 10/08/2023 Active Suboxone 8-2 MG 1 1/2 film under the tongue and allow to dissolve Sublingual Once a day Active Social History Tobacco Use: Social History Observation Description Date Details (start date - stop date) Former Smoker NA - NA Sex Assigned At : Social History Observation Description Sex Assigned At Male Tobacco Use/Smoking Question Answer Notes Patient is a former smoker How long has it been since you last smoked? > 10 years Additional Findings: Tobacco Non-User Ex-cigaret te smoker Alcohol Screen Question Answer Notes Did you have a drink containing alcohol in the p ast year? No Points 0 Interpretation Negative Problems Problem Type SNOMED Code ICD Code Onset Dates Problem Status W/U Status Risk Notes Problem Benign prostatic hyperplasia (952589390) BPH (benign prostatic hyperplasia) (N40.0) Active confirmed He rises from sleep once or twice a night to urinate. We discussed lifestyle modification as a way to reduce nocturnal urinating. Problem 861594698 Rosacea (L71.9) Active confirmed He was given a prescription for metronidazole cream Vital Signs Temperature 97.7 degrees Fahrenheit 06/10/20 23 Blood pressure systolic 110 mm Hg 06/10/20 23 Blood pressure diastolic 70 mm Hg 023 Heart Rate 99 /min 06/10/2023 Height 68 in 06/10/2023 Weight 184 lbs 06/10/2023 BMI 27.97 kg/m2 06/10/2023 Encounters Encounter Location Date Provider Diagnosis Ricardo Seo III, MD [address] [place] [address] [address] [facility] [place] [address] 06/10/2023 Ricardo Seo Encounter for screen ing for malignant neoplasm of colon Z12.11 ; Annual physical exam Z00.00 ; Overweight E66.3 ; BPH (benign prostatic hyperplasia) N40.0 ; Uncomplicated opioid dependence F11.20 ; Former smoker Z87.891 ; Lumbago with sciatica, left side M54.42 and Rosacea L71.9 Assessments Encounter Date Diagnosis (ICD Code) Assessment Notes Treat ment Notes Treatment Clinical Notes 06/10/2023 Encounter for screening for malignant neoplasm of colon (ICD-10 - Z12.11) He declined a referral for colonoscopy, but accepted a referral for a Cologard test. 06/10/2023 Annual physical exam (ICD-10 - Z00.00) He is healthy and well. The addiction counselor is helping him taper off of the Suboxone. He has a prolonged period of time of good recovery. In healthy and well today. Gel not covered by insurance changed to cream 06/10/2023 Overweight (ICD-10 - E66.3) His body mass index is 27. We discussed his diet and nutrition. We discussed a weight loss plan. We made a plan to lose weight at a rate of one half of a pound per week. 06/10/2023 BPH (benign prostatic hyperplasia) (ICD-10 - N40.0) He rises from sleep once or twice a night to urinate. We discussed lifestyle modification as a way to reduce nocturnal urinating. 06/10/2023 Uncomplicated opioid dependence (ICD-10 - F11.20) He is no longer taking opiate medication. He is taking pregabalin at this time. 06/10/2023 Former smoker (ICD-10 - Z87.891) He seems motivated not to smoke. We discussed a plan to prevent relapse in times of stress and illness. 06/10/2023 Lumbago with sciatica, left side (ICD-10 - M54.42) I have given him 2 weeks of the oxycodone at the same frequency and does allow him to have the MRI and to arrange a consultation with a surgeon. He will have a urine test to make sure he is compliant with the medication. He will return in 2 weeks. I intend to taper the medication off if possible. 06/10/2023 Rosacea (ICD-10 - L71.9) He was given a prescription for metronidazole cream Plan Of Treatment Medication Medication Name Sig Start Date Stop Date Notes metroNIDAZOLE 1 % 1 application Utility Locator ally Once a day for 30 days 06/10/2023 01/06/2024 metroNIDAZOLE 0.75 % 1 application Exter nabeel Once a day for 30 days 06/10/2023 10/08/2023 Suboxone 8-2 MG 1 1/2 film under the tongue and allow to dissolve Sublingual Once a day Treatment Notes Assessment Notes Annual physical exam Gel not covered by insurance changed to cream Pending Test Test Name Order Date URINE DIP STICK 06/10/2023 PROFILE, FASTING (COMPREHENSIVE METABOLI C) 06/10/2023 PSA, TOTAL 06/10/2023 CBC w DIFF 06/10/2023 COLOGUARD 06/10/2023 Lipid Panel 06/10/2023 Next Appt Details Follow Up: 1 Year, Reason: O V Provider Name:Ricardo Seo, 11/17/2024 11:00:00 AM, [address] [place] [address] [place] LEIGH, [place], [address], Progress Notes * MONROE GALLARDO:1970 (53 yo M)Acc No.[id number]:06/10/2023 Progress Notes Patient:?GRAYSON GALLARDO Provider:?Ricardo Seo MD :1970???Age:53 Y???Sex:Male Danny e:06/10/2023 Address:[address] [place] [address], [facility] [address] , [facility], [id number] Subjective: * Chief Complaints: * ???Annual Exam * HPI: ???Depression Screening:?PHQ-9?Little interest or pleasure in doing things?Not at all ?Feeling down, depressed, or hopeless?Not at all ?Trouble falling or staying asleep, or sleeping too much?Several days ?Feeling tired or having little energy?Not at all ?Poor appetite or overeating?Not at all ?Feeling bad about yourself or that you are a failure, or have let yourself or your family down?Not at all ?Trouble concentrating on things, such as reading the newspaper or watching television?Not at all ?Moving or speaking so slowly that other people could have noticed; or the opposite, being so fidgety or restless that you have been moving around a lot more than usual?Not at all ?Thoughts that you would be better off or of hurting yourself in some way?Not at all ?Total Score?1 ?Interpretation?Minimal Depression ? He comes to the office at the age of 53. For his annual physical examination. His low back pain has completely resolved. It is now an occasional twinge. He is not smoking. He is involved with addiction medicine and take Suboxone, which they are tapering off. He is not using. He feels healthy and well. He complains of a mild red rash that is intermittent, occurring on his forehead and cheeks. On examination it seemed to be rosacea. He was given metronidazole cream to see if that would eradicate it. His examination today was consistent with good health. He declined an offer of referral for colonoscopy but did accept referral for a Cologard test. ???COVID-19 Screening:?Questions?Have you experienced fever, chills, cough, sore throat, shortness of breath, difficulty breathing, muscle aches, loss of taste or smell??No ?Have you been exposed to the virus within the last 10 days??No ?Have you travelled internationally in the last 10 days??No ?Have you been exposed to COVID-19 in the past??No * ROS:?General/Constitutional:?pain?only normal aches and pains.?Chills?denies.?Fatigue?admits.?Fever?denies.?ENT:?Decreased hearing?denies.?Respiratory:?Cough?denies.?Cardiovascular:?Chest pain with exertion?denies.?Dyspnea on exertion?denies.?Shortness of breath?denies.?Gastrointestinal:?Constipation?occasional.?Decreased appetite?denies.?Diarrhea?denies.?Heartburn?denies.?Nausea?denies.?Rectal bleeding?denies.?Vomiting?denies.?Hematology:?bruising?denies.?petechiae?denies.?Swollen glands?none have been noted.?Genitourinary:?Frequent urination?once a night.?Musculoskeletal:?Muscle aches?denies.?Painful joints?denies.?Sciatica?denies.?Weakness?denies.?Skin:?Itching?denies.?Rash?Mild facial rash, which is intermittent.?Skin lesion(s)?denies.?Neurologic:?Difficulty speaking?denies.?Dizziness?denies.?Headache?denies.?Low back pain?denies.?Psychiatric:?Depressed mood?denies.? * Medical History:? * Surgical History:?right side mass removed from neck 1999 * Hospitalization/Major Diagno stic Procedure:?Denies Past Hospitalization * Family History:?Father: pepe shea?Mother: alive, Diabetes mellitus, hypertension, osteoarthritis, cataracts, diagnosed with DM, HTN.?Siblings: alive.?1 brother(s) - healthy. 1 son(s) , 3 daughter(s) - healthy. .? He says his parents are both living. There is no information available about his father. His brother has hyperlipidemia. He has no children. * Social History:?Tobacco Use:?Tobacco Use/Smoking?Patient is a?former smoker ?How long has it been since you last smoked??> 10 years ?Additional Findings: Tobacco Non-User?Ex-cigarette smoker ???Drugs/Alcohol:?Drugs?Have you used drugs other than those for medical reasons in the past 12 months??No ?Alcohol Screen?Did you have a drink containing alcohol in the past year??No ?Points?0 ?Interpretation?Negative ???Miscellaneous:?no Domestic violence. ?Marital status: single. ???He has been on Social Security disability since 2008. He moved here from [facility] prior to that. The previous records indicate that he was on Suboxone until February 2017. He is a former smoker. He lives in [address] [place] [address]. He is of the [employer]. * Medications:?TakingSuboxone 8-2 MG Film 1 1/2 film under the tongue and allow to dissolve Sublingual Once a dayTaking Suboxone 8-2 MG Film 1 1/2 film under the tongue and allow to dissolve Sublingual Once a dayDiscontinuedLyrica , Notes: 50 mg a dayIbuprofen 800 MG Tablet 1 tablet with food or milk as needed Orally Three times a dayMedication List reviewed and reconciled with the patientDiscontinued Lyrica , Notes: 50 mg a dayDiscontinued Ibuprofen 800 MG Tablet 1 tablet with food or milk as needed Orally Three times a dayMedication List reviewed and reconciled with the patient * Allergies:?Tylenol: jessica[ Allergies Verified] Objective: * Vitals:?Ht: 68, Wt: 184, BMI :27.97, BP: 110/70, HR: 99, Temp:97.7, Wt-k.46. * Examination: ???General Examination: ?GENERAL APPEARANCE:?pleasant, well nourished, well developed, in no acute distress, calm and relaxed, overweight, man.?HEAD:?atraumatic, normocephalic.?EYES:?eomi, perrla, anicteric, conjugate.?EARS:?normal.?NOSE:?septum intact.?ORAL CAVITY:?normal, unremarkable.?NECK/THYROID:?no jugular venous distention, no carotid bruit, thyroid normal.?LYMPH NODES:?no enlarged lymph nodes,spleen normal.?SKIN:?no suspicious lesions, anicteric, mild facial rosacea.?.?HEART:?no clicks, gallops, murmurs, or rubs, regular rhythm, S1, S2 normal, no s3, or vascular bruits.?LUNGS:?clear to auscultation .?BREASTS:??no masses palpable bilaterally.?ABDOMEN:?bowel sounds normal, no ascites, no organomegaly, no mass, overweight.?RECTAL EXAM:?normal tone, no external hemorrhoids, no masses palpable, no melena, no red blood, prostate normal, stool guaiac negative.?MUSCULOSKELETAL:?extremities unremarkable, no clubbing, cyanosis or edema.?PERIPHERAL PULSES:?normal.?NEUROLOGIC:?alert and oriented, cranial nerves 2-12 grossly intact, deep tendon reflexes 2+ symmetrical, motor strength normal upper and lower extremities, sensory exam intact.?PSYCH:?alert, oriented.? Assessment: * Assessment: 1.?Annual physical exam - Z0 0.00 (Primary), He is healthy and well. The addiction counselor is helping him taper off of the Suboxone. He has a prolonged period of time of good recovery. In healthy and well today.?2.?Encounter for screening for malignant neoplasm of colon - Z12.11, He declined a referral for colonoscopy, but accepted a referral for a Cologard test.?3.?Overweight - E66.3, His body mass index is 27. We discussed his diet and nutrition. We discussed a weight loss plan. We made a plan to lose weight at a rate of one half of a pound per week.?4.?BPH (benign prostatic hyperplasia) - N40.0, He rises from sleep once or twice a night to urinate. We discussed lifestyle modification as a way to reduce nocturnal urinating.?5.?Uncomplicated opioid dependence - F11.20, He is no longer taking opiate medication. He is taking pregabalin at this time.?6.?Former smoker - Z87.891, He seems motivated not to smoke. We discussed a plan to prevent relapse in times of stress and illness.?7.?Lumbago with sciatica, left side - M54.42, I have given him 2 weeks of the oxycodone at the same frequency and does allow him to have the MRI and to arrange a consultation with a surgeon. He will have a urine test to make sure he is compliant with the medication. He will return in 2 weeks. I intend to taper the medication off if possible.?8.?Rosacea - L71.9, He was given a prescription for metronidazole cream? Plan: * Treatment: ? Value Reference Range ?SG 1.010 1.005 - 1.025 * ?pH 9.0 5.0 - 9.0 * ?MINISTERIO Negative Negative - * ?NIT Negative Negative - * ?PRO 15 Negative - Trac e * ?GLU Negative Negative - * ?KET Negative Negative - * ?UBG 0.2 0.1 - 1.8 * ?JAUN Negative 0.2 - 1.3 * ?BLD 5-10 Negative - ?LAB: PROFILE, FASTING (COMPREHENSIVE METABOLIC) ?LAB: PSA, TOTAL ?LAB: CBC w DIFF ?LAB: Lipid Panel Notes: Gel not covered by insurance changed to cream.??2.?Encounter for screening for malignant neoplasm of colon?LAB: COLOGUARD3.?Overweight?LAB: PROFILE, FASTING (COMPREHENSIVE METABOLIC) ?LAB: PSA, TOTAL ?LAB: CBC w DIFF ?LAB: Lipid Panel4.?BPH (benign prostatic hyperplasia)?LAB: PROFILE, FASTING (COMPREHENSIVE METABOLIC) ?LAB: PSA, TOTAL ?LAB: CBC w DIFF ?LAB: Lipid Panel5.?Others? Continue Suboxone Film, 8-2 MG, 1 1/2 film under the tongue and allow to dissolve, Sublingual, Oncea day.?? * Procedure Codes:?33350 URINE -NO [id number] TEST FOR BLOOD, FECES * Preventive Medicine:? ??Counseling:?Care goal follow-up plan:?Counseling for abnormal BMI given?Yes ?Above Normal BMI Follow-up?Dietary management education, guidance, and counseling ?Smoking/Tobacco Use?Patient counseled on the dangers of tobacco use and urged to quit.?06/10/2023 * Follow Up:?1 Year (Reason: O V) * Images: * Sign off status: Completed true * Provider:?Ricardo Seo MD Date:?05/23 Generated for Janes vizcaino/Aleida/eTransmitting on:?11/03/2024 10:10 AM EDT History and Physical Notes * HPI (History of Present Illness) Category Sub-Category Detail Notes Depression Screening PHQ-9 Little inte rest or pleasure in doing things: Not at all Feeling down, depressed, or hopeless: No t at all Trouble falling or staying asleep, or sl eeping too much: Several days Feeling tired or having little energy: N ot at all Poor appetite or overeating: Not at all Feeling bad about yourself o r that you are a failure, or have let yourself or your family down: Not at all Trouble concentrating on thi ngs, such as reading the newspaper or watching television: Not at all Moving or speaking so slowly that other people could have noticed; or the opposite, being so fidgety or restless that you have been moving around a lot more than usual: Not at all Thoughts that you would be b miya off or of hurting yourself in some way: Not at all Total Score: 1 Interpretation: Minimal Depression COVID-19 Screening Questions Have you had any new onset fever, chills, cough, congestion, sore throat, shortness of breath, muscle aches?: No Have you been exposed to the virus withi n the last 10 days?: No Have you travelled internationally in last 10 days?: No Have you been exposed to COVID-19 in the past?: No Examination Category Sub-Category Detail Notes General Examination GENERAL APPEARANCE: pleasant , well nourished, well developed, in no acute distress, calm and relaxed, overweight, man HEAD: atraumatic, normocep halic EYES: eomi, perrla, anicte emiliano, conjugate EARS: normal NOSE: septum intact NECK/THYROID: no jugular venous di stention, no carotid bruit, thyroid normal HEART: no clicks, gallops, murmurs, or rubs, regular rhythm, S1, S2 normal, no s3, or vascular bruits LUNGS: clear to auscultatio n ABDOMEN: bowel sounds normal, no ascites, no organomegaly, no mass, overweight NEUROLOGIC: alert and oriented, cranial nerves 2-12 grossly intact, deep tendon reflexes 2+ symmetrical, motor strength normal upper and lower extremities, sensory exam intact SKIN: no suspicious lesion s, anicteric, mild facial rosacea. PERIPHERAL PULSES: normal BREASTS: no masses palpable b ilaterally MUSCULOSKELETAL: extremities unremark able, no clubbing, cyanosis or edema LYMPH NODES: no enlarged lymph no rah,spleen normal RECTAL EXAM: normal tone, no exte rnal hemorrhoids, no masses palpable, no melena, no red blood, prostate normal, stool guaiac negative PSYCH: alert, oriented ORAL CAVITY: normal, unremarkable
--- OUTSIDE RECORDS SUMMARY | 2024-11-03 10:11 | XMS_ITS | Patient Health Record ---
Author Organization Ricardo Seo III, MD Address [address] [place] [address] Care Team Providers Care Laboratory Worker Name Role Phone Ricardo Seo Primary Care Provider Allergies Allergen (clinical drug ingredient) Drug/Non Drug Allergy documented on EMR Reaction Allergy Type Onset Date Status acetaminophen Tylenol hives Drug Allergy Act mary Reason For Referral No Information Medications Medication SIG (Take, Route, Fr equency, Duration) Notes Start Date End Date Status Suboxone 8-2 MG 1 1/2 film under [...] Problem Status W/U Status Risk Notes Problem 5963683 Former smoker (Z87.891) Active confirmed He seems motivated not to smoke. We discussed a plan to prevent relapse in times of stress and illness. Problem 010165253 Overweight (E66.3) Active confirmed His body mass index is 27. We discussed his diet and nutrition. We discussed a weight loss plan. We made a plan to lose weight at a rate of one half of a pound per week. Problem 546837479 Episodic cluster headache, not intractable (G44.019) Active confirmed He did not report having any headaches today. Problem 01479083 Other chronic pa in (G89.29) Active confirmed He was given a prescription for oxycodone instant release 5 mg tablets. He received 11 tablets and was told is a one half a day for severe pain. For the next 22 days after which she will no longer receive narcotic therapy. He has been to the orthopedic surgeon. He will be to pain management. He did not keep his neurosurgical appointment and that has been rescheduled, he says. I will continue to provide him with medical care on a regular basis. I did not find any limitation of range of motion of his neck today. Problem 706998405 Lumbago with sciatica, right side (M54.41) Active confirmed He will continue on the pregabalin. He was referred back for injections and his spine to spine and sports. He will consider having the effusion. He'll be seen regularly. Problem 094751805 Lumbago with sciatica, left side (M54.42) Active confirmed I have given him 2 weeks of the oxycodone at the same frequency and does allow him to have the MRI and to arrange a consultation with a surgeon. He will have a urine test to make sure he is compliant with the medication. He will return in 2 weeks. I intend to taper the medication off if possible. Problem Benign prostatic hyperplasia (799159936) BPH (benign prostatic hyperplasia) (N40.0) Active confirmed He rises from sleep once or twice a night to urinate. We discussed lifestyle modification as a way to reduce nocturnal urinating. Problem 955476653 Rosacea (L71.9) Active confirmed He was given a prescription for metronidazole cream Problem Cervical disc disorder (127865509) Cervical neck pain with evidence of disc disease (M50.90) Active confirmed He will have an MRI of his neck and then a repeat neurosurgical consultation. He will consider the effusion. Problem 68584854 Uncomplicated opioid dependence (F11.20) Active confirmed He is no longer taking opiate medication. He is taking pregabalin at this time. Problem [id number] Spondylolisthesi s of lumbar region (M43.16) Active confirmed He has not been offered a surgical option for this problem. This will be pursued if it remains in this practice. Encounters Encounter Location Date Provider Diagnosis Ricardo Seo III, MD [address] [place] [address] DR [place] [address] [place] [address] [place] [address] 06/13/2024 Ricardo Seo Plan Of Treatment Pending Test Test Name Order Date URINE DIP STICK 06/10/2023 PROFILE, FASTING (COMPREHENSIVE METABOLI C) 06/10/2023 PSA, TOTAL 06/10/2023 CBC w DIFF 06/10/2023 MRI CERVICAL SPINE NO CONTRAST 9 MRI LUMBAR SPINE W&WO CONTRAST 8 COLOGUARD 06/10/2023 Lipid Panel 06/10/2023 Next Appt Details Provider Name:Ricardo Seo, 11/17/2024 11:00:00 AM, [address] [facility] , [address], [place], [address], Insurance Providers Payer Name Payer Address Payer Phone Subscriber Number Group Number Insured Name Patient Relationship to Insured Coverage Start Date Coverage End Date MEDICARE NGS [address] [place] [address] [id number] GRAYSON GALLARDO Self - patient is the insured MEDICAID [address] [place] [id number] GRAYSON GALLARDO Self - patient is the insured Medical (General) History Medical History History ICD Code spondylolisthesis at L4-L5 level lumbago with sciatica, right side chronic low back pain requiring opiate t herapy former smoker opiate dependence obesity, body mass index 30 chronic bitemporal cluster headaches history of using Suboxone prior to February 2017 Surgical History Surgery Date(Month/Year) right side mass removed from neck 1999
== END 2024-11-03 09:38 | disposition home or self-care (01) ==
LOC: HO.HCC 09:21
PROVIDERS: PCP Internal Medicine Medical Oncology; Visit Provider Nurse Practitioner Psychiatric/Mental Health
DX: F11.91 Opioid use, unspecified, in remission (principal)
CPT/HCPCS: 99213

== ENCOUNTER → 2024-11-03 09:20 | Outpatient (BNVA) | payer MEDICARE, MEDICAID, SELFPAY | PROVIDERS: PCP Internal Medicine Medical Oncology; Visit Provider Nurse Practitioner Psychiatric/Mental Health | DX: F11.91 Opioid use, unspecified, in remission (principal) ==

== ENCOUNTER 2025-01-19 10:49 | Outpatient (AMB) | payer MEDICARE, MEDICAID, SELFPAY ==
--- NOTE | 2025-01-19 10:50 | MHC.AM.SUB ---
Vital Signs 01/19/25 10:53 01/19/25 10:55 BP 146/74 H Blood Pressure Location Lt brachial Position Sitting Pulse 91 Pulse Source Pulse Oximeter Pulse Oximetry (%) 99 Oxygen Delivery Method Room Air Intake Visit Reasons: MAT Intake Note: Patient presents for MAT Allergies acetaminophen [Tylenol] Allergy (Unknown, Verified 01/19/25 10:52) hives HPI HPI MAT: Details: He is doing well in tapering and now is tapering to 10 mg daily. He declines using shot to taper. He has not had labs taken lately for HIV and Hepatitis C. He has facial seborrhea bothering him. Review of Systems Const All systems reviewed & are unremarkable except as noted in HPI and below Physical Exam Vital Signs: Last Vital Signs Pulse 91 01/19/25 10:53 BP 146/74 H 01/19/25 10:55 Pulse Ox 99 01/19/25 10:53 Oxygen Delivery Method Room Air 01/19/25 10:53 Const General: cooperative [facility] Medical History Opioid use disorder Assessment & Plan Assessment & Plan (1) Opioid use disorder in remission: Comment: He is doing well tapering but had relapse Code(s): F1. - Opioid use, unspecified, in remission Category: Medical Plan: Would give 4 mg tid and see how much uses,90 and no refills. Phone visit in one month as patient has no car. Would check HIV and Hepatitis C labs. Seborrhea left face rx with ketoconazole cream. Orders: Orders Hepatitis C Antibody Today - Opioid use, unspecified, in remission Hepatitis B Surface Antibody Today - Opioid use, unspecified, in remission Syphilis Screen Today - Opioid use, unspecified, in remission HIV Ab/Ag Today - Opioid use, unspecified, in remission Hepatitis A IgG Today - Opioid use, unspecified, in remission Hepatitis B Surface Antigen Today - Opioid use, unspecified, in remission T Spot TB Today - Opioid use, unspecified, in remission Medications: New ketoconazole 2% 1 appl topical BID 30 days 30 grams 3RF buprenorphine-naloxone 4-1 mg (Suboxone) place 1 strip/tab under (each) side of tongue 1 film sublingual TID 30 days 90 ea 0RF
[2025-01-19 10:53] VITALS: PULSE 91; O2SAT 99
[2025-01-19 10:55] VITALS: BP 146/74
--- OUTSIDE RECORDS SUMMARY | 2025-01-19 11:38 | XMS_ITS ---
Author Organization Ricardo Seo III, MD Address [address] [place] [address] [place] [address] Care Team Providers Care Forestry Fire Aide Name Role Phone Ricardo Seo Primary Care Provider [phone] REASON FOR VISIT Rx Refill Medications Medication [...] Date Provider Diagnosis Ricardo Seo III, MD [address] [place] [address] [address] [facility] [place] [address] 06/13/2024 Ricardo eSo Plan Of Treatment Medication Medication Name Sig Start Date Stop Date Notes Ibuprofen 800 MG 1 tablet with food o r milk as needed Orally every 8 hrs for 30 days 06/13/2024 08/11/2024 Next Appt Details Provider Name:Ricardo Seo, 02/20/2025 02:00:00 PM, [address] [place] [address] [place], [address], Progress Notes * GRAYSON GALLARDODOB:1970 (54 yo M)Acc No.[id number]:06/13/2024 Patient:?GRAYSON GALLARDO :1970???Age:54 Y???Sex:Male Address:[address] , [place], [address] * Refills? Start Ibuprofen Tablet, 800 MG, Orally, 90 Tablet, 1 tablet with food or milk as needed, every 8 hrs, 30 days, Refills=1 * true * Date:? Generated for Janes vizcaino/Aleida/Saundra on:?01/19/2025 11:37 AM EDT
== END 2025-01-19 11:35 | disposition home or self-care (01) ==
LOC: HO.HID 10:49
PROVIDERS: PCP Internal Medicine Medical Oncology; Visit Provider Internal Medicine
DX: F11.91 Opioid use, unspecified, in remission (principal)
CPT/HCPCS: 99214

== ENCOUNTER → 2025-01-19 10:49 | Outpatient (BNVA) | payer MEDICARE, MEDICAID, SELFPAY | PROVIDERS: PCP Internal Medicine Medical Oncology; Visit Provider Internal Medicine | DX: F11.91 Opioid use, unspecified, in remission (principal) | CPT/HCPCS: 99212 ==

== ENCOUNTER 2025-02-21 15:56 | Outpatient (AMB) | payer MEDICARE, MEDICAID, SELFPAY ==
--- NOTE | 2025-02-23 17:46 | A.OFFVISCC_ITS ---
Intake Visit Reasons: MAT Allergies acetaminophen (Tylenol) Allergy (Unknown, Verified 01/19/25 10:52) hives HPI HPI MAT: Details: He is doing well. He has no complaints. Review of Systems Const All systems reviewed & are unremarkable except as noted in HPI and below Physical Exam Const General: cooperative [facility] Medical History Opioid use disorder Assessment & Plan Assessment & Plan (1) Opioid use disorder in remission: Comment: He is doing well Code(s): F11.91 - Opioid use, unspecified, in remission Category: Medical Plan: Continue current care See as scheduled. Medications: New Suboxone 4-1 mg (buprenorphine-naloxone) place 1 strip/tab under (each) side of tongue brand name medically necessary 1 film sublingual TID 90 ea 0RF 30 days NS
== END 2025-02-21 15:57 | disposition home or self-care (01) ==
LOC: HO.HCC 15:56
PROVIDERS: PCP Internal Medicine Medical Oncology; Visit Provider Internal Medicine
DX: F11.91 Opioid use, unspecified, in remission (principal)
CPT/HCPCS: 99213

== ENCOUNTER → 2025-02-21 15:56 | Outpatient (BNVA) | payer MEDICARE, MEDICAID, SELFPAY | PROVIDERS: PCP Internal Medicine Medical Oncology; Visit Provider Internal Medicine | DX: F11.91 Opioid use, unspecified, in remission (principal) | CPT/HCPCS: 99212 ==

== ENCOUNTER 2025-03-23 10:16 | Outpatient (AMB) | payer MEDICARE, MEDICAID, SELFPAY ==
--- OUTSIDE RECORDS SUMMARY | 2024-11-17 11:30 | XMS_ITS ---
Author Organization Ricardo Seo III, MD Address [address] [place] [address] [place] [address] Care Team Providers Care Mill Manager Name Role Phone Ricardo Seo Primary Care Provider Allergies Allergen (clinical drug ingredient) Drug/Non Drug Allergy documented on EMR Reaction Allergy Type Onset Date Status acetaminophen Tylenol hives Drug Allergy Act mary REASON FOR VISIT annual exam Medications Medication SIG (Take, Route, Fr equency, [...] Additional Findings: Tobacco Non-User Ex-cigaret te smoker Encounters Encounter Location Date Provider Diagnosis Ricardo Seo III, MD [address] [place] [address] [place] [address] 11/17/2024 Ricardo Seo Plan Of Treatment Medication Medication Name Sig Start Date Stop Date Notes Suboxone 8-2 MG 1 1/2 film under the tongue and allow to dissolve Sublingual Once a day Next Appt Details Provider Name:Ricardo Seo, 06/12/2025 02:00:00 PM, [address] [place] [address] [place], [address], Progress Notes * GRAYSON GALLARDODOB:1970 (55 yo M)Acc No.[id number]:11/17/2024 Progress Notes Patient: B URGOS, GRAYSON Provider: Pilo Seo MD :1970 A ge:54 Y S ex:Male Date:11/17/2024 Address:[address] [place] [address] , [place], [id number] Subjective: * Chief Complaints: * 1 . Annual exam. * HPI: C OVID-19 Screening: Questions H ave you had any new onset fever, chills, cough, congestion, sore throat, shortness of breath, muscle aches? N o * ROS: G eneral/Constitutional: pain o nly normal aches and pains. C hills d enies.?Fatigue a dmits. F ever d enies. E NT: Decreased hearing d enies. R espiratory: Cough d enies. C ardiovascular: Chest pain with exertion d enies. D yspnea on exertion?denies. S hortness of breath d enies. G astrointestinal: Constipation d enies. D ecreased appetite d enies.?Diarrhea d enies. H eartburn d enies. N ausea d enies. R ectal bleeding?denies. V omiting d enies. H ematology: bruising d enies. p etechiae d enies. S wollen glands n one have been noted. G enitourinary: Frequent urination d enies. M usculoskeletal: Muscle aches d enies. P ainful joints d enies. S ciatica d enies. W eakness d enies. S kin: Itching d enies. R lesly d enies. S kin lesion(s)?denies. N eurologic: Difficulty speaking d enies. D izziness d enies.?Headache d enies. L ow back pain d enies. P sychiatric: Depressed mood d enies. * Medical History: s pondylolisthesis at L4-L5 level, Lumbago with sciatica, right side, Chronic low back pain requiring opiate therapy, Former smoker, Opiate dependence, Obesity, body mass index 30, Chronic bitemporal cluster headaches, history of using Suboxone prior to February 2017. * Surgical History: r ight side mass removed from neck 1999. * Hospitalization/Major Diagno stic Procedure: D enies Past Hospitalization. * Family History: F ather: alive. M other: alive, Diabetes mellitus, hypertension, osteoarthritis, cataracts, diagnosed with HTN, DM. S iblings: alive. 1 brother(s) - healthy. 1 son(s) , 3 daughter(s) - healthy. . He says his parents are both living. There is no information available about his father. His brother has hyperlipidemia. He has no children. * Social History: T obacco Use: T obacco Use/Smoking P atient is a f ormer smoker H ow long has it been since you last smoked??> 10 years A dditional Findings: Tobacco Non-User E x-cigarette smoker Ronal mcdonnell has been on Social Security disability since 2008. He moved here from [facility] prior to that. The previous records indicate that he was on Suboxone until February 2017. He is a former smoker. He lives in [address] [place] [address]. He is of the [employer] gil[employer]. * Medications: T aking Suboxone 8-2 MG Film 1 1/2 film under the tongue and allow to dissolve Sublingual Once a day , Medication List reviewed and reconciled with the patient * Allergies: T ylenol: hives. Objective: * Vitals: * Examination: G eneral Examination: GENERAL APPEARANCE: p leasant, well nourished, well developed, in no acute distress, calm and relaxed. HEAD: a traumatic, normocephalic. EYES: e emilie, perrla, anicteric, conjugate. EARS: n ormal. NOSE: s eptum intact. ORAL CAVITY: n ormal, unremarkable. NECK/THYROID: n o jugular venous distention, no carotid bruit, thyroid normal. LYMPH NODES: n o enlarged lymph nodes,spleen normal. SKIN: n o suspicious lesions, anicteric. HEART: n o clicks, gallops, murmurs, or rubs, regular rhythm, S1, S2 normal, no s3, or vascular bruits. LUNGS: c lear to auscultation . BREASTS: no masses palpable bilaterally. ABDOMEN: b owel sounds normal, no ascites, no organomegaly, no mass. RECTAL EXAM: n ot examined. MUSCULOSKELETAL: e xtremities unremarkable, no clubbing, cyanosis or edema. PERIPHERAL PULSES: n ormal. NEUROLOGIC: a lert and oriented, cranial nerves 2-12 grossly intact, deep tendon reflexes 2+ symmetrical, motor strength normal upper and lower extremities, sensory exam intact. PSYCH: a lert, oriented. Assessment: Plan: * Treatment: * Images: * The named appointment provid er may or may not be the originator of this progress note, and it is not deemed complete until electronically signed by the appointment provider. Sign off status: Pending * Provider: Pilo Seo MD Date: 0 11/17/2024 Generated for Janes vizcaino/Aleida/eTransmitting on: 0 03/23/2025 10:26 AM EDT History and Physical Notes * HPI (History of Present Illness) Category Sub-Category Detail Notes COVID-19 Screening Questions Have you had any new onset fever, chills, cough, congestion, sore throat, shortness of breath, muscle aches?: No Examination Category Sub-Category Detail Notes General Examination GENERAL APPEARANCE: pleasant , well nourished, well developed, in no acute distress, calm and relaxed HEAD: atraumatic, normocep halic EYES: eomi, perrla, anicte emiliano, conjugate EARS: normal NOSE: septum intact NECK/THYROID: no jugular venous di stention, no carotid bruit, thyroid normal HEART: no clicks, gallops, murmurs, or rubs, regular rhythm, S1, S2 normal, no s3, or vascular bruits LUNGS: clear to auscultatio n ABDOMEN: bowel sounds normal, no ascites, no organomegaly, no mass NEUROLOGIC: alert and oriented, cranial nerves 2-12 grossly intact, deep tendon reflexes 2+ symmetrical, motor strength normal upper and lower extremities, sensory exam intact SKIN: no suspicious lesion s, anicteric PERIPHERAL PULSES: normal BREASTS: no masses palpable b ilaterally MUSCULOSKELETAL: extremities unremark able, no clubbing, cyanosis or edema LYMPH NODES: no enlarged lymph no rah,spleen normal RECTAL EXAM: not examined PSYCH: alert, oriented ORAL CAVITY: normal, unremarkable
--- NOTE | 2025-03-23 14:43 | A.OFFVIS_ITS ---
Intake Visit Reasons: MAT Allergies acetaminophen (Tylenol) Allergy (Unknown, Verified 01/19/25 10:52) hives HPI HPI MAT: Details: He is doing well He has tapered from 4/1 tid strips to 2 to 2 1/2 strips daily He has no withdrawal symptoms [facility] Medical History Opioid use disorder Review of Systems Const All systems reviewed & are unremarkable except as noted in HPI and below Physical Exam Const General: cooperative Assessment & Plan Assessment & Plan (1) Opioid use disorder in remission: Comment: He is doing well Last month he was taking one 4/1 strip tid This month give on 4/1 strip bid 60 given and no refills. See in one month Code(s): F11.91 - Opioid use, unspecified, in remission Category: Medical Plan: n/a Medications: New buprenorphine-naloxone 4-1 mg (Suboxone) place 1 strip/tab under (each) side of tongue 1 film sublingual BID 60 ea 0RF 30 days Suboxone 4-1 mg (buprenorphine-naloxone) place 1 strip/tab under (each) side of tongue Brand name medically necessary,no substitution 1 film sublingual BID 60 ea 0RF 30 days NS Coding Level of Care Code Est Pt Level 3 (29515) Diagnoses Opioid use disorder in remission F11.91
== END 2025-03-23 10:21 | disposition home or self-care (01) ==
LOC: HO.HCC 10:16
PROVIDERS: PCP Internal Medicine Medical Oncology; Visit Provider Internal Medicine
DX: F11.91 Opioid use, unspecified, in remission (principal)
CPT/HCPCS: 99213

== ENCOUNTER → 2025-03-23 10:16 | Outpatient (BNVA) | payer MEDICARE, MEDICAID, SELFPAY | PROVIDERS: PCP Internal Medicine Medical Oncology; Visit Provider Internal Medicine | DX: F11.21 Opioid dependence, in remission (principal) | CPT/HCPCS: 99212 ==

== ENCOUNTER 2025-04-27 15:48 | Outpatient (AMB) | payer MEDICARE, MEDICAID, SELFPAY ==
--- OUTSIDE RECORDS SUMMARY | 2024-06-13 05:22 | XMS_ITS ---
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 Name Role Phone Ricardo Seo Primary Care Provider [phone] REASON FOR VISIT Rx Refill Medications Medication SIG (Take, Route, Fr equency, Duration) Notes Start Date End Date Status Ibuprofen 800 MG 1 tablet with food o r milk as needed Orally every 8 hrs for 30 days 06/13/2024 08/11/2024 Active Social History Sex Assigned At : Social History Observation Description Sex Assigned At Male Encounters Encounter Location Date Provider Diagnosis Ricardo Seo III, MD [address] [place] [address] [place] [address] 06/13/2024 Ricardo Seo Plan Of Treatment Medication Medication Name Sig Start Date Stop Date Notes Ibuprofen 800 MG 1 tablet with food o r milk as needed Orally every 8 hrs for 30 days 06/13/2024 08/11/2024 Next Appt Details Provider Name:Ricardo Seo, 06/12/2025 02:00:00 PM, [address] [place] [address] [place], [address], Progress Notes * GRAYSON GALLARDODOB:1970 (54 yo M)Acc No.[id number]:06/13/2024 Patient: GRAYSON MADSEN :1970 A ge:54 Y S ex:Male Address:[address] , [place], [address] * Refills Start Ibuprofen Tablet, 800 MG, Orally, 90 Tablet, 1 tablet with food or milk as needed, every 8 hrs, 30 days, Refills=1 * true * Date: Generated for Janes vizcaino/Aleida/Susanaitting on: 0 04/27/2025 03:50 PM EDT
--- OUTSIDE RECORDS SUMMARY | 2024-06-14 13:15 | XMS_ITS ---
Author Organization Ricardo Seo III, MD Address [address] [place] [address] [place] [address] Care Team Providers Care Reimbursement Liaison Name Role Phone Ricardo Seo Primary Care Provider REASON FOR VISIT annual exam Social History Sex Assigned At : Social History Observation Description Sex Assigned At Male Encounters Encounter Location Date Provider Diagnosis Ricardo Seo III, MD [address] [place] [address] [place] [address] 06/14/2024 Ricardo Seo Plan Of Treatment Next Appt Details Provider Name:Ricardo Seo, 06/12/2025 02:00:00 PM, [address] [place] [address] [address], [place], [address], Progress Notes * GRAYSON GALLARDODOB:1970 (55 yo M)Acc No.[id number]:06/14/2024 Progress Notes Patient: GRAYSON MADSEN Provider: Pilo Seo MD :1970 A ge:54 Y S ex:Male Date:06/14/2024 Address:[address] [facility], [address] , [place], [id number] Subjective: * Chief Complaints: * 1 . Annual exam. * Medical History: Objective: * Vitals: Assessment: Plan: * Treatment: * Images: * The named appointment provid er may or may not be the originator of this progress note, and it is not deemed complete until electronically signed by the appointment provider. Sign off status: Pending * Provider: Pilo Seo MD Date: 1 Generated for Janes vizcaino/Aleida/Saundra on: 0 04/27/2025 03:51 PM EDT
--- OUTSIDE RECORDS SUMMARY | 2024-11-17 11:30 | XMS_ITS ---
Author Organization Ricardo Seo III, MD Address [address] [place] [address] [place] [address] Care Team Providers Care Pit Laborer Name Role Phone Ricardo Seo Primary Care [...] Date Provider Diagnosis Ricardo Seo III, MD [address] [place] [address] [place] [address] 11/17/2024 Ricardo Seo Plan Of Treatment Medication Medication Name Sig Start Date Stop Date Notes Suboxone 8-2 MG 1 1/2 film under the tongue and allow to dissolve Sublingual Once a day Next Appt Details Provider Name:Ricardo Seo, 06/12/2025 02:00:00 PM, [address] [place] [address] [place], [address], Progress Notes * GRAYSON GALLARDODOB:1970 (55 yo M)Acc No.[id number]:11/17/2024 Progress Notes Patient: B URGOS, GRAYSON Provider: Pilo Seo MD :1970 A ge:54 Y S ex:Male Date:11/17/2024 Address:[address] [place] [address] , [place], [id number] Subjective: * Chief Complaints: * 1 . [...] disability since 2008. He moved here from [facility] prior to that. The previous records indicate that he was on Suboxone until February 2017. He is a former smoker. He lives in [address] [place] [address]. 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 * Medications: T aking Suboxone 8-2 [...] 11/17/2024 Generated for Janes vizcaino/Aleida/eTransmitting on: 0 04/27/2025 03:50 PM EDT History and Physical Notes * HPI [...]
--- OUTSIDE RECORDS SUMMARY | 2025-02-20 15:30 | XMS_ITS ---
Author Organization Ricardo Seo III, MD Address [address] [place] [address] [place] [address] Care Team Providers Care Drapery Counselor Name Role Phone Ricardo Seo Primary Care [...] Date Provider Diagnosis Ricardo Seo III, MD [address] [place] [address] [place] [address] 02/20/2025 Ricardo Seo Plan Of Treatment Medication Medication Name Sig Start Date Stop Date Notes Suboxone 8-2 MG 1 1/2 film under the tongue and allow to dissolve Sublingual Once a day Next Appt Details Provider Name:Ricardo Seo, 06/12/2025 02:00:00 PM, [address] [place] [address] [place], [address], Progress Notes * GRAYSON GALLARDODOB:1970 (55 yo M)Acc No.[id number]:02/20/2025 Progress Notes Patient: B URGOS, GRAYSON Provider: Pilo Seo MD :1970 A ge:55 Y S ex:Male Date:02/20/2025 Address:[address] [place] [address] , [place], [id number] Subjective: * Chief Complaints: * 1 . [...] since 2008. He moved here from [facility] prior to that. The previous records indicate that he was on Suboxone until February 2017. He is a former smoker. He lives in [address] [place] [address]. 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 * Medications: T aking Suboxone 8-2 [...] Pending * Provider: Pilo Seo MD Date: 02/20/2025 Generated for Janes vizcaino/Aleida/eTransmitting on: 04/27/2025 03:51 PM EDT History and Physical Notes * [...]
[2025-04-27 15:49] VITALS: PULSE 101; O2SAT 98; BMI 29.3
--- NOTE | 2025-04-27 15:49 | A.OFFVIS_ITS ---
Vital Signs 04/27/25 15:49 Height 5 ft 8 in Weight 193 lb BMI 29.3 Pulse 101 H Pulse Source Pulse Oximeter Pulse Oximetry (%) 98 Oxygen Delivery Method Room Air Intake Visit Reasons: mat visit/ in person appt per Allergies acetaminophen (Tylenol) Allergy (Unknown, Verified 04/27/25 15:50) hives HPI Comments Details: He is feeling better,no concerns. [facility] Medical History Opioid use disorder Review of Systems Const All systems reviewed & are unremarkable except as noted in HPI and below Physical Exam Vital Signs: Last Vital Signs Pulse 101 H 04/27/25 15:49 Pulse Ox 98 04/27/25 15:49 Oxygen Delivery Method Room Air 04/27/25 15:49 BMI result Body Mass Index 29.3 Const General: cooperative Assessment & Plan Assessment & Plan (1) Opioid use disorder in remission: Comment: He feels his dose feels best at 4/1 tid Code(s): F11.91 - Opioid use, unspecified, in remission Category: Medical Plan: This is written for tid. Plan See as scheduled. Medications: New buprenorphine-naloxone 4-[address] 1 strip/tab under (each) side of tongue 1 film sublingual BID 7 days 14 ea 0RF buprenorphine-naloxone 4-[address] 1 strip/tab under (each) side of tongue 1 film sublingual BID 7 days 14 ea 0RF Suboxone 4-1 mg (buprenorphine-naloxone) place 1 strip/tab under (each) side of tongue no substitution ,brand name medically necessary 1 film sublingual TID 90 ea 0RF 30 days NS Coding Level of Care Code Est Pt Level 3 (20096) Diagnoses Opioid use disorder in remission F11.91
--- OUTSIDE RECORDS SUMMARY | 2025-04-27 15:51 | XMS_ITS | Patient Health Record ---
Author Organization Ricardo Seo III, MD Address [address] [address] Care Team Providers Care Systems Designer Name Role Phone Ricardo Seo Primary Care Provider [phone] Allergies Allergen (clinical drug ingredient) Drug/Non Drug [...] Problem Status W/U Status Risk Notes Problem 5483004 Former smoker (Z87.891) Active confirmed He seems motivated not to smoke. We discussed a plan to prevent relapse in times of stress and illness. Problem 965746655 Overweight (E66.3) Active confirmed His body mass index is 27. We discussed his diet and nutrition. We discussed a weight loss plan. We made a plan to lose weight at a rate of one half of a pound per week. Problem 458113904 Episodic cluster headache, not intractable (G44.019) Active confirmed He did not report having any headaches today. Problem 85533428 Other chronic pa in (G89.29) Active confirmed [...] of motion of his neck today. Problem 517055192 Lumbago with sciatica, right side (M54.41) Active confirmed He will continue on the pregabalin. He was referred back for injections and his spine to spine and sports. He will consider having the effusion. He'll be seen regularly. Problem 869919074 Lumbago with sciatica, left side (M54.42) Active [...] off if possible. Problem Benign prostatic hyperplasia (300600761) BPH (benign prostatic hyperplasia) (N40.0) Active confirmed He rises from sleep once or twice a night to urinate. We discussed lifestyle modification as a way to reduce nocturnal urinating. Problem 874807267 Rosacea (L71.9) Active confirmed He was given a prescription for metronidazole cream Problem Cervical disc disorder (898604445) Cervical neck pain with evidence of disc disease (M50.90) Active confirmed He will have an MRI of his neck and then a repeat neurosurgical consultation. He will consider the effusion. Problem 37264344 Uncomplicated opioid dependence (F11.20) Active confirmed He is no longer taking opiate medication. He is taking pregabalin at this time. Problem [id number] Spondylolisthesi s of lumbar region (M43.16) Active confirmed He has not been offered a surgical option for this problem. This will be pursued if it remains in this practice. Encounters Encounter Location Date Provider Diagnosis Ricardo Seo III, MD [address] [place] [address] [address] [place] [address] [place] [address] 06/13/2024 Ricardo Seo Plan Of Treatment Pending Test Test Name Order Date URINE DIP STICK 06/10/2023 PROFILE, FASTING (COMPREHENSIVE METABOLI C) 06/10/2023 PSA, TOTAL 06/10/2023 CBC w DIFF 06/10/2023 MRI CERVICAL SPINE NO CONTRAST 9 MRI LUMBAR SPINE W&WO CONTRAST 8 COLOGUARD 06/10/2023 Lipid Panel 06/10/2023 Next Appt Details Provider Name:Ricardo Seo, 06/12/2025 02:00:00 PM, [address] [place] [address] , [address], [place], [address], Insurance Providers Payer Name Payer Address Payer Phone Subscriber Number Group Number Insured Name Patient Relationship to Insured Coverage Start Date Coverage End Date MEDICARE NGS [address] [place] [address] [id number] GRAYSON GALLARDO Self - patient is the insured MED[place] [address] ANAYELI CHOI [id number] GRAYSON GALLARDO Self - patient is the [...]
== END 2025-04-27 16:49 | disposition home or self-care (01) ==
LOC: HO.HCC 15:48
PROVIDERS: PCP Internal Medicine Medical Oncology; Visit Provider Internal Medicine
DX: F11.91 Opioid use, unspecified, in remission (principal)
CPT/HCPCS: 99213

== ENCOUNTER → 2025-04-27 15:48 | Outpatient (BNVA) | payer MEDICARE, MEDICAID, SELFPAY | PROVIDERS: PCP Internal Medicine Medical Oncology; Visit Provider Internal Medicine | DX: F11.21 Opioid dependence, in remission (principal) | CPT/HCPCS: 99212 ==

== ENCOUNTER 2025-05-25 10:36 | Outpatient (AMB) | payer MEDICARE, MEDICAID, SELFPAY ==
--- OUTSIDE RECORDS SUMMARY | 2024-06-13 05:22 | XMS_ITS ---
Author Organization Ricardo Seo III, MD Address [address] [place] [address] [address] [facility] [place] [address] Care Team Providers Care Radiation Protection Technician Name Role Phone Dr. Ricardo Seo III Primary Care Provider [phone] REASON FOR VISIT Rx Refill Medications Medication [...] Date Provider Diagnosis Ricardo Seo III, MD [address] [place] [address] [address] [facility] [place] [address] 06/13/2024 Ricardo Seo Plan Of Treatment Medication Medication Name Sig Start Date Stop Date Notes Ibuprofen 800 MG 1 tablet with food o r milk as needed Orally every 8 hrs for 30 days 06/13/2024 08/11/2024 Next Appt Details Provider Name:Ricardo Seo , 06/12/2025 02:00:00 PM, [address] [place] [address] [place], [address], Progress Notes * GRAYSON GALLARDODOB:1970 (54 yo M)Acc No.[id number]:06/13/2024 Patient: GRAYSON MADSEN :1970 A ge:54 Y S ex:Male Address:[address] , [place], [address] * Refills Start Ibuprofen Tablet, 800 MG, Orally, 90 Tablet, 1 tablet with food or milk as needed, every 8 hrs, 30 days, Refills=1 * true * Date: Generated for Janes vizcaino/Aleida/Saundra on: 1 11:33 AM EDT
--- OUTSIDE RECORDS SUMMARY | 2024-06-14 13:15 | XMS_ITS ---
Author Organization Ricardo Seo III, MD Address [address] [place] [address] [place] [address] Care Team Providers Care State Attorney Name Role Phone Dr. Ricardo Seo III Primary Care Provider REASON FOR VISIT annual exam Social History Sex Assigned At : Social History Observation Description Sex Assigned At Male Encounters Encounter Location Date Provider Diagnosis Ricardo Seo III, MD [address] [place] [address] [address] [place] [address] 06/14/2024 Ricardo Seo Plan Of Treatment Next Appt Details Provider Name:Ricardo Seo , 06/12/2025 02:00:00 PM, [address] [place] [address] [address], [place], [address], Progress Notes * GRAYSON GALLARDODOB:1970 (55 yo M)Acc No.[id number]:06/14/2024 Progress Notes Patient: GRAYSON MADSEN Provider: Pilo Seo MD :1970 A ge:54 Y S ex:Male Date:06/14/2024 Address:[address] [facility], [address] , [place], [id number] Subjective: * Chief Complaints: * 1 . Annual exam. * Medical History: Objective: * Vitals: Assessment: Plan: * Treatment: * Images: * The named appointment provid er may or may not be the originator of this progress note, and it is not deemed complete until electronically signed by the appointment provider. Sign off status: Pending * Provider: Pilo Seo MD Date: Generated for Janes vizcaino/Aleida/Susanaitting on: 11:33 AM EDT
--- OUTSIDE RECORDS SUMMARY | 2024-11-17 11:30 | XMS_ITS ---
Author Organization Ricardo Seo III, MD Address [address] [place] [address] [place] [address] Care Team Providers Care Pathology Manager Name Role Phone Dr. Ricardo Seo III Primary Care Provider [phone] Allergies Allergen (clinical drug ingredient) Drug/Non Drug [...] Date Provider Diagnosis Ricardo Seo III, MD [address] [place] [address] [place] [address] 11/17/2024 Ricardo Seo Plan Of Treatment Medication Medication Name Sig Start Date Stop Date Notes Suboxone 8-2 MG 1 1/2 film under the tongue and allow to dissolve Sublingual Once a day Next Appt Details Provider Name:Ricardo Seo , 06/12/2025 02:00:00 PM, [address] [place] [address] [place], [address], Progress Notes * GRAYSON GALLARDODOB:1970 (55 yo M)Acc No.[id number]:11/17/2024 Progress Notes Patient: GRAYSON MADSEN Provider: Pilo Seo MD :1970 A ge:54 Y S ex:Male Date:11/17/2024 Address:[address] [place] [address] , [facility], [id number] Subjective: * Chief Complaints: * 1 . [...] disability since 2008. He moved here from [facility] prior to that. The previous records indicate that he was on Suboxone until February 2017. He is a former smoker. He lives in [address] [place] [address]. 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 * Medications: T aking Suboxone 8-2 [...] Seo MD Date: 0 11/17/2024 Generated for Pedroi carrillo/Aleida/eTransmitting on: 1 11:33 AM EDT History and Physical Notes * [...]
--- OUTSIDE RECORDS SUMMARY | 2025-02-20 15:30 | XMS_ITS ---
Author Organization Ricardo Seo III, MD Address [address] [place] [address] [place] [address] Care Team Providers Care Director Long Term Care Name Role Phone Dr. Ricardo Seo III Primary Care Provider [phone] Allergies Allergen (clinical drug ingredient) Drug/Non Drug [...] Date Provider Diagnosis Ricardo Seo III, MD [address] [place] [address] [place] [address] 02/20/2025 Ricardo Seo Plan Of Treatment Medication Medication Name Sig Start Date Stop Date Notes Suboxone 8-2 MG 1 1/2 film under the tongue and allow to dissolve Sublingual Once a day Next Appt Details Provider Name:Ricardo Seo , 06/12/2025 02:00:00 PM, [address] [place] [address] [place], [address], Progress Notes * GRAYSON GALLARDODOB:1970 (55 yo M)Acc No.[id number]:02/20/2025 Progress Notes Patient: GRAYSON MADSEN Provider: Pilo Seo MD :1970 A ge:55 Y S ex:Male Date:02/20/2025 Address:[address] [place] [address] , [facility], [id number] Subjective: * Chief Complaints: * 1 . [...] disability since 2008. He moved here from [facility] prior to that. The previous records indicate that he was on Suboxone until February 2017. He is a former smoker. He lives in [address] [place] [address]. He is of the [employer] gilber[employer]. * Medications: T aking Suboxone 8-2 [...] * Provider: Pilo Seo MD Date: 0 02/20/2025 Generated for Pedroi carrillo/Aleida/eTransmitting on: 1 11:33 [...]
--- OUTSIDE RECORDS SUMMARY | 2025-05-25 11:34 | XMS_ITS | Patient Health Record ---
Author Organization Ricardo Seo III, MD Address [address] [place] [address] [place] [address] Care Team Providers Care Merchandising Team Lead Name Role Phone Dr. Ricardo Seo III Primary Care Provider Allergies Allergen (clinical drug [...] Problem Status W/U Status Risk Notes Problem 4844018 Former smoker (Z87.891) Active confirmed He seems motivated not to smoke. We discussed a plan to prevent relapse in times of stress and illness. Problem 352184993 Overweight (E66.3) Active confirmed His body mass index is 27. We discussed his diet and nutrition. We discussed a weight loss plan. We made a plan to lose weight at a rate of one half of a pound per week. Problem 430049464 Episodic cluster headache, not intractable (G44.019) Active confirmed He did not report having any headaches today. Problem 08356340 Other chronic pa in (G89.29) Active confirmed [...] of motion of his neck today. Problem 331135035 Lumbago with sciatica, right side (M54.41) Active confirmed He will continue on the pregabalin. He was referred back for injections and his spine to spine and sports. He will consider having the effusion. He'll be seen regularly. Problem 088263406 Lumbago with sciatica, left side (M54.42) Active [...] off if possible. Problem Benign prostatic hyperplasia (926370070) BPH (benign prostatic hyperplasia) (N40.0) Active confirmed He rises from sleep once or twice a night to urinate. We discussed lifestyle modification as a way to reduce nocturnal urinating. Problem 536067181 Rosacea (L71.9) Active confirmed He was given a prescription for metronidazole cream Problem Cervical disc disorder (047861190) Cervical neck pain with evidence of disc disease (M50.90) Active confirmed He will have an MRI of his neck and then a repeat neurosurgical consultation. He will consider the effusion. Problem 20516195 Uncomplicated opioid dependence (F11.20) Active confirmed He is no longer taking opiate medication. He is taking pregabalin at this time. 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 This will be pursued if it remains in this practice. Encounters Encounter Location Date Provider Diagnosis Ricardo Seo III, MD [address] [place] [address] DR [address] [place], [place] [id number] [id number] 06/13/2024 Ricardo Seo Plan Of Treatment Pending Test Test Name Order Date URINE DIP STICK 06/10/2023 PROFILE, FASTING (COMPREHENSIVE METABOLI C) 06/10/2023 PSA, TOTAL 06/10/2023 CBC w DIFF 06/10/2023 MRI CERVICAL SPINE NO CONTRAST 9 MRI LUMBAR SPINE W&WO CONTRAST 8 COLOGUARD 06/10/2023 Lipid Panel 06/10/2023 Next Appt Details Provider Name:Ricardo Segoviane , 06/12/2025 02:00:00 PM, [address], [address], [place], [address], Insurance Providers Payer Name Payer Address Payer Phone Subscriber Number Group Number Insured Name Patient Relationship to Insured Coverage Start Date Coverage End Date MEDICARE NGS [address] [place] [address] [id number] GRAYSON GALLARDO Self - patient is the insured MED[place] [address] [place] [id number] GRAYSON GALLARDO Self - patient is the [...]
--- NOTE | 2025-05-25 16:21 | MHC.AM.SUB ---
Intake Visit Reasons: MAT Allergies acetaminophen (Tylenol) Allergy (Unknown, Verified 04/27/25 15:50) hives HPI Comments Details: History of Present Illness The patient is a 55-year-old male presenting with opioid use disorder. He has been using a combination of buprenorphine and naloxone, 4/1 mg, administered as one film twice daily. The patient reports being stable on this regimen, with no associated adverse effects such as gastrointestinal disturbances or mood disorders. He is compliant with the medication and is seeking a prescription refill, with no acute concerns noted. Review of Systems - Gastrointestinal: Denies diarrhea, constipation - Psychological: Denies depression - General: Reports doing well overall Physical Exam Results Plan Patient was informed and verbally consented to the use of an ambient scribe for clinic note documentation during this visit. 1. Opioid use, unspecified, uncomplicated F11.90 The patient will maintain the current regimen of buprenorphine/naloxone 4/1 mg, one film twice daily, with continued monitoring of therapy effectiveness and safety. A 30-day supply has been prescribed. The patient is to return for an in-person visit to assess treatment progress and adjust as necessary. The decision for ongoing pharmacotherapy aims to support ongoing recovery and prevent relapse. Discussion Notes I discussed with the patient the continued use of buprenorphine/naloxone for the management of opioid use disorder. We reviewed the positive impact of the current dosage in maintaining stability and preventing relapse. The patient understood the importance of continued adherence and consented to the treatment plan. We will monitor the impact of therapy and see the patient in person at the next visit. The patient was informed about the prescription refill for the next 30 days. Medical Decision Making The patient is stable on the current treatment of buprenorphine/naloxone, which has effectively controlled the symptoms of opioid use disorder without adverse effects. The decision to continue this regimen is based on its efficacy in preventing relapse and promoting sustained recovery. The absence of any complaints or concerns further supports the continuation of current therapy. The anticipated outcome is maintained abstinence and stability, with in-person reassessment at the next visit. Patient Instructions - Continue taking buprenorphine/naloxone as prescribed: one film, twice a day. - Return in 30 days for the next appointment. - Stay alert for any new symptoms or side effects, and report them immediately. - Take medication consistently and follow any additional guidance from your healthcare team. [facility] Medical History Opioid use disorder Assessment & Plan Assessment & Plan (1) Opioid use disorder in remission: Comment: He feels his dose feels best at 4/1 tid Code(s): F11.91 - Opioid use, unspecified, in remission Category: Medical Plan: as above Plan as above Medications: New Suboxone 4-1 mg (buprenorphine-naloxone) place 1 strip/tab under (each) side of tongue bid brand name medically necessary 1 film sublingual BID 60 ea 0RF 30 days NS buprenorphine-naloxone 4-1 mg (Suboxone) place 1 strip/tab under (each) side of tongue 1 film sublingual BID 60 ea 0RF 30 days
== END 2025-05-25 10:37 | disposition home or self-care (01) ==
LOC: HO.HID 10:36
PROVIDERS: PCP Internal Medicine Medical Oncology; Visit Provider Internal Medicine
DX: F11.91 Opioid use, unspecified, in remission (principal)
CPT/HCPCS: 99213

== ENCOUNTER → 2025-05-25 10:36 | Outpatient (BNVA) | payer MEDICARE, MEDICAID, SELFPAY | PROVIDERS: PCP Internal Medicine Medical Oncology; Visit Provider Internal Medicine | DX: F11.21 Opioid dependence, in remission (principal) | CPT/HCPCS: 99212 ==